=== PATIENT | male | born 1965 | race Caucasian/White ===

== ENCOUNTER 2017-01-30 13:35 | Emergency (ER) | payer MEDICAID, OTHER ==
[2017-01-30 13:49] VITALS: TEMP 98.2
--- NOTE | 2017-01-30 15:03 | C.PDOC ---
History Of Present Illness 51 year old male, whose past medical history includes seizures, presents to the ED via EMS for evaluation after having a tonic clonic seizure episode earlier today. Patient admits he did not take his prescribed Dilantin today. He also reports cough and admits to tobacco use. Patient denies fever, chills, tongue biting, urinary/bowel incontinence. Time Seen by Provider: 01/30/17 14:23 Chief Complaint (Nursing): Seizure History Per: Patient, EMS History/Exam Limitations: no limitations Recent Seizure Activity Began: Unknown Length Of Seizures (Duration): Unknown Precipitating Factor(s): Missed Dose Of Anti-seizure Medication Additional History Per: Patient, Family Past Medical History Reviewed: Historical Data, Nursing Documentation, Vital Signs Vital Signs: Last Vital Signs Temp 98.2 F 01/30/17 19:05 Pulse 97 H 01/30/17 19:05 Resp 17 01/30/17 19:05 BP 161/94 H 01/30/17 19:05 Pulse Ox 97 01/30/17 23:10 - Medical History PMH: Anxiety, Asthma, Depression, HTN, Schizophrenia, Seizures (Epilepsy) Surgical History: No Surg Hx Family History: States: Unknown Family Hx - Social History Hx Tobacco Use: Yes Hx Alcohol Use: No Hx Substance Use: No - Immunization History Hx Tetanus Toxoid Vaccination: Yes Hx Influenza Vaccination: Yes (2016) Hx Pneumococcal Vaccination: No Review Of Systems Constitutional: Negative for: Fever, Chills Respiratory: Positive for: Cough Genitourinary: Negative for: Incontinence Neurological: Positive for: Seizures Physical Exam - Physical Exam Appears: Non-toxic, No Acute Distress Skin: Normal Color, Warm, Dry Head: Atraumatic, Normacephalic Eye(s): bilateral: Normal Inspection Oral Mucosa: Moist Tongue: Normal Appearing, No Bite, No Bleeding Neck: Supple Chest: Symmetrical, No Deformity, No Tenderness Cardiovascular: Rhythm Regular, No Murmur Respiratory: No Rales, No Rhonchi, Wheezing (expiratory, bilaterally ) Gastrointestinal/Abdominal: Soft, No Tenderness, No Guarding, No Rebound Extremity: Normal ROM, Capillary Refill (less than 2 seconds ) Neurological/Psych: Oriented x3, Normal Speech, Normal Cognition Gait: Steady ED Course And Treatment - Laboratory Results Result Diagrams: 01/30/17 15:09 01/30/17 15:09 O2 Sat by Pulse Oximetry: 97 (on RA) Pulse Ox Interpretation: Normal - Other Rad CXR X-Ray: Interpreted by Me, Viewed By Me, Read By Radiologist Interpretation: IMPRESSION: No active disease. Medical Decision Making Medical Decision Making: Initial Impression: * seizure * cough Plan: * bloodwork * CXR * reassess and disposition Progress: Bloodwork and CXR ordered and reviewed. patient received 700 mg of po dilantin patient refused iv medication - dilantin patient has dilantin at home and will discharge home to follow up with pmd in 2 days Disposition Counseled Patient/Family Regarding: Studies Performed, Diagnosis, Need For Followup - Disposition Referrals: Estuardo Ruiz [Staff Provider] - Disposition: HOME/ ROUTINE Disposition Time: 18:56 Condition: STABLE Additional Instructions: follow up with your doctor in 2 days call to make an appointment continue your dilantin return to hospital if symptoms worsens or progress Prescriptions: Sildenafil Citrate [Viagra] 25 mg PO DAILY #8 tablet Instructions: Recurrent Seizures in Adults (ED) Forms: Pad[employer] ([place]orese), Gen Discharge Inst Venezuelan, [employer] (Venezuelan) Print Language: ENGLISH - Clinical Impression Clinical Impression: Seizure - Scribe Statement The provider has reviewed the documentation as recorded by the Scribe (Bri Perez) Provider Attestation: All medical record entries made by the Scribe were at my direction and personally dictated by me. I have reviewed the chart and agree that the record accurately reflects my personal performance of the history, physical exam, medical decision making, and the department course for this patient. I have also personally directed, reviewed, and agree with the discharge instructions and disposition.
[2017-01-30 15:13] LABS: BASO % 0.4 % (0.0-2.0); EOS # 1.1 K/uL (0.0-0.7); EOS % 12.6 % (0.0-4.0); LYMPH # 2.7 K/uL (1.0-4.3); LYMPH % 30.5 % (20.0-40.0); MEAN CELL VOLUME 90.9 fL (80.0-94.0); MEAN CORPUSCULAR HEMOGLOBIN 30.2 pg (27.0-31.0); MEAN CORPUSCULAR HGB CONC 33.3 g/dL (33.0-37.0); MEAN PLATELET VOLUME 10.3 fL (7.2-11.7); NRBC % 0.1 % (0.0-2.0); RED CELL DISTRIBUTION WIDTH 14.5 % (11.5-14.5); WHITE BLOOD COUNT 8.8 K/uL (4.8-10.8)
[2017-01-30 15:22] LABS: CHLORIDE 103 mmol/L (98-107); POTASSIUM 4.3 mmol/L (3.6-5.2); SODIUM 138 mmol/L (132-148)
[2017-01-30 15:24] LABS: GFR AFRICAN-AMERICAN > 60
[2017-01-30 15:25] LABS: ALB/GLOB RATIO 1.1 (1.0-2.1); ALKALINE PHOSPHATASE 104 U/L (38-126); ALT/SGPT 40 U/L (21-72); AST/SGOT 32 U/L (17-59); BILIRUBIN,TOTAL 0.6 mg/dL (0.2-1.3); BLOOD UREA NITROGEN 11 mg/dL (9-20); CALCIUM 9.4 mg/dl (8.6-10.4); CARBON DIOXIDE 24 mmol/L (22-30); GLUCOSE,RANDOM 79 mg/dL (75-110); TOTAL PROTEIN 8.4 g/dL (6.3-8.3)
--- NOTE | 2017-01-30 15:58 | RAD ---
HISTORY: Seizure COMPARISON: 07/27/2014 TECHNIQUE: Chest PA and lateral FINDINGS: LUNGS: No active pulmonary disease. PLEURA: No significant pleural effusion identified. No pneumothorax apparent. CARDIOVASCULAR: Normal. OSSEOUS STRUCTURES: The prior right side plate with screws fixing a prior right clavicular fracture has been removed. . Thoracic spondylosis VISUALIZED UPPER ABDOMEN: Normal. OTHER FINDINGS: None. IMPRESSION: No active disease.
[2017-01-30] MEDS ORDERED: Albuterol-Ipratrop 3 mg / 0.5 (3 ml) UD INH STA (16:43)
[2017-01-30] MEDS ORDERED: Fosphenytoin 1,000 MG in Sodium Chloride 0.9% 50 ML IM STA (16:53)
[2017-01-30] MEDS ORDERED: Albuterol-Ipratrop 3 mg / 0.5 (3 ml) UD ONE (16:57)
[2017-01-30 19:06] VITALS: BP 161/94; PULSE 97; RESP 17
[2017-01-30 20:12] VITALS: O2SAT 97
== END 2017-01-30 19:17 | disposition home or self-care (01) ==
LOC: C.ER 13:35
DX: G40.909 Epilepsy, unspecified, not intractable, without status epilepticus (principal); I10 Essential (primary) hypertension; F17.210 Nicotine dependence, cigarettes, uncomplicated
CPT/HCPCS: 71020; 80053; 80185; 82948; 85025; 96374; 99285; J1165

== ENCOUNTER 2017-03-30 14:44 | Inpatient (IN) | payer MEDICAID, OTHER ==
--- NOTE | 2017-03-30 15:29 | C.PDOC ---
History Of Present Illness 50 year old male whose PMH includes seizures and schizoaffective disorder, presents to the ED for psychiatric evaluation. Mother called EMS because he was holding a knife and thought about cutting himself. Patient admits he has not taken his medications for few days. Additionally reports hearing voices and the voice told him to grab knife. He denies any suicidal thoughts at present time. He also reports feeling confused and there is delay in responses. Patient cannot recall his last seizure. Time Seen by Provider: 03/30/17 14:59 Chief Complaint (Nursing): Psychiatric Evaluation History Per: Family (mother) History/Exam Limitations: no limitations Onset/Duration Of Symptoms: Gradual Current Symptoms Are (Timing): Still Present Severity: None Pain Scale Rating Of: 0 Involuntary Hold By: None Recent travel outside of the [place]: No Additional History Per: Patient Past Medical History Reviewed: Historical Data, Nursing Documentation, Vital Signs Vital Signs: Last Vital Signs Temp 98.5 F 03/30/17 16:48 Pulse 72 03/30/17 16:48 Resp 18 03/30/17 16:48 BP 152/89 H 03/30/17 16:48 Pulse Ox 96 03/30/17 17:35 - Medical History PMH: Anxiety, Asthma, Depression, HTN, Schizophrenia, Seizures (Epilepsy) Family History: States: Unknown Family Hx - Social History Hx Tobacco Use: Yes Hx Alcohol Use: No Hx Substance Use: No - Immunization History Hx Tetanus Toxoid Vaccination: Yes Hx Influenza Vaccination: Yes (2016) Hx Pneumococcal Vaccination: No Review Of Systems Except As Marked, All Systems Reviewed And Found Negative. Constitutional: Negative for: Fever, Chills Cardiovascular: Negative for: Chest Pain, Palpitations Respiratory: Negative for: Cough, Shortness of Breath Neurological: Negative for: Headache, Dizziness Psych: Positive for: Other (hearing voices). Negative for: Suicidal ideation Physical Exam - Physical Exam Appears: Non-toxic, No Acute Distress Skin: Normal Color, Warm, Dry Head: Atraumatic, Normacephalic Eye(s): bilateral: Normal Inspection, EOMI Oral Mucosa: Moist Neck: Normal ROM Chest: Symmetrical Cardiovascular: Rhythm Regular, No Murmur Respiratory: Normal Breath Sounds, No Rales, No Rhonchi, No Wheezing Gastrointestinal/Abdominal: Soft, No Tenderness Extremity: Normal ROM, No Pedal Edema, No Deformity, No Swelling Neurological/Psych: Normal Speech, Normal Motor, Normal Sensation, Slow To Respond With Command Disoriented To: Time ED Course And Treatment - Laboratory Results Result Diagrams: 03/30/17 16:06 03/30/17 16:06 Lab Interpretation: No Acute Changes O2 Sat by Pulse Oximetry: 96 (RA) Pulse Ox Interpretation: Normal Medical Decision Making Medical Decision Making: Impression: schizophrenic hearing voices and confusion Plan: * Labs * Head CT Progress: Labs reviewed and Head CT without any acute findings. Phenytoin level is low. Resume meds Patient is medically cleared and stable for psychiatric admission. 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 As per CW Camille patient is to be admitted under Dr Martinez service for schizophrenia Disposition - Disposition Disposition: HOSPITALIZED Disposition Time: 17:36 Condition: STABLE Forms: [facility] (Greek) - POA Present On Arrival: None - Clinical Impression Clinical Impression: Schizophrenia - PA / FUNDING SPECIALIST / Resident Statement MD/DO has reviewed & agrees with the documentation as recorded. - Scribe Statement The provider has reviewed the documentation as recorded by the Scribe Bill Perez All medical record entries made by the Scribe were at my direction and personally dictated by me. I have reviewed the chart and agree that the record accurately reflects my personal performance of the history, physical exam, medical decision making, and the department course for this patient. I have also personally directed, reviewed, and agree with the discharge instructions and disposition. Decision To Admit - Pt Status Changed To: Hospital Disposition Of: Inpatient - Admit Certification Admit to Inpatient:: After my assessment, the patient will require hospitalization for at least two midnights. This is because of the severity of symptoms shown, intensity of services needed, and/or the medical risk in this patient being treated as an outpatient. - InPatient: Physician Admission Certification: I certify that this patient requires 2 or more midnights of care for the following reason:: Patient to be admitted for schizophrenia under DR Martinez service - . Bed Request Type: Psychiatry Admitting Physician: Luann Martinez Patient Diagnosis: Schizophrenia
--- NOTE | 2017-03-30 15:52 | CT ---
PROCEDURE: CT HEAD WITHOUT CONTRAST. HISTORY: confusion COMPARISON: 11/19/2014 TECHNIQUE: Axial computed tomography images were obtained through the head/brain without intravenous contrast. Radiation dose: Total exam DLP = 1003.45 mGy-cm. This CT exam was performed using one or more of the following dose reduction techniques: Automated exposure control, adjustment of the mA and/or kV according to patient size, and/or use of iterative reconstruction technique. FINDINGS: HEMORRHAGE: No intracranial hemorrhage. BRAIN: No mass effect or edema. No atrophy or chronic microvascular ischemic changes. VENTRICLES: Unremarkable. No hydrocephalus. CALVARIUM: Unremarkable. PARANASAL SINUSES: Unremarkable as visualized. No significant inflammatory changes. MASTOID AIR CELLS: Unremarkable as visualized. No inflammatory changes. OTHER FINDINGS: Old depressed right lamina papyracea fracture. IMPRESSION: No intracranial mass, hemorrhage or evidence of acute infarct.
[2017-03-30 16:12] LABS: BASO # 0.1 K/uL (0.0-0.2); BASO % 0.9 % (0.0-2.0); EOS # 0.6 K/uL (0.0-0.7); EOS % 4.7 % (0.0-4.0); HEMATOCRIT 46.4 % (35.0-51.0); LYMPH # 3.1 K/uL (1.0-4.3); LYMPH % 24.1 % (20.0-40.0); MEAN CELL VOLUME 91.2 fL (80.0-94.0); MEAN CORPUSCULAR HEMOGLOBIN 29.9 pg (27.0-31.0); MEAN CORPUSCULAR HGB CONC 32.8 g/dL (33.0-37.0); MEAN PLATELET VOLUME 10.2 fL (7.2-11.7); MONO # 0.9 K/uL (0.0-0.8); MONO % 6.7 % (0.0-10.0); RED CELL DISTRIBUTION WIDTH 14.7 % (11.5-14.5); WHITE BLOOD COUNT 12.7 K/uL (4.8-10.8)
[2017-03-30 16:28] LABS: RBC URINE < 1 /hpf (0-3); URINE BILIRUBIN NEGATIVE (NEGATIVE); URINE BLOOD NEGATIVE (NEGATIVE); URINE COLOR Straw (YELLOW); URINE GLUCOSE (UA) NORMAL (Normal); URINE KETONE NEGATIVE (NEGATIVE); URINE LEUKOCYTE ESTERASE NEG Leu/uL (Negative); URINE PROTEIN NEGATIVE (NEGATIVE); URINE UROBILINOGEN NORMAL mg/dL (0.2-1.0); WBC URINE 2 /hpf (0-5)
[2017-03-30 16:32] LABS: ALB/GLOB RATIO 1.4 (1.0-2.1); ALCOHOL SERUM < 10 mg/dl (0-10); ALKALINE PHOSPHATASE 118 U/L (38-126); ALT/SGPT 40 U/L (21-72); AST/SGOT 28 U/L (17-59); BILIRUBIN,TOTAL 0.5 mg/dL (0.2-1.3); BLOOD UREA NITROGEN 12 mg/dL (9-20); CALCIUM 9.1 mg/dl (8.6-10.4); CARBON DIOXIDE 23 mmol/L (22-30); CHLORIDE 105 mmol/L (98-107); GFR AFRICAN-AMERICAN > 60; GLUCOSE,RANDOM 120 mg/dL (75-110); POTASSIUM 4.1 mmol/L (3.6-5.2); SODIUM 140 mmol/L (132-148); TOTAL PROTEIN 7.7 g/dL (6.3-8.3)
[2017-03-30] MEDS ORDERED: Magnesium Hydroxide Susp 30 ml UD PO ONE (20:01)
[2017-03-30] MEDS ORDERED: Albuterol HFA 90 mcg/actuation (8 g) INH PRN ×2 (22:00→22:14)
--- NOTE | 2017-03-30 22:46 | PCM.BM ---
<Yohan Santos - Last Filed: 03/30/17 22:45> Treatment Plan Problems - Problems identified on initial assessmt Suicidal Ideation Date Initiated: 03/30/17 Time Initiated: 18:30 Assessment reference: NA Status: Active Auditory Hallucination Date Initiated: 03/30/17 Time Initiated: 18:30 Assessment reference: NA Status: Active Treatment assets and liabiliti Patient Assests: ADL independent, negotiates basic needs Patient Liabilities: medical problems - Milieu Protocol Maintain good personal hygiene: daily Encourage regular showers, daily Remind patient to perform daily oral care Conduct patient checks and document Observation sheet: Q15 minutes Maintain personal safety: every shift Educate patient to report safety concerns to staff, every shift Monitor environment for contraband/sharps Medication safety: Monitor for expected outcome, potential side effects: every shift, Assess barriers to learning: every shift, Assess readiness for medication education: every shift <Alysa Diaz - Last Filed: 04/02/17 11:10> - Diagnosis (1) Schizoaffective disorder Status: Acute Interventions: 04/02/17 11:11 * Assess/adjust medications daily and /or as needed * See patient on an individual basis 7x/week to assess status of hallucinations * Discuss risks, benefits, side effects and alternatives of medications * <Theresa Elliott - Last Filed: 04/05/17 14:29> Family Contact Family involvement: Family/SO is involved Family contact: Patient agrees to contact Family contact name: Christiano Castro Family contacted how many times per week?: 1 - Goals for Treatment Patient goals for treatment: "I want to go home." Discharge/Continuing Care - Education Needs Education Needs: Patient Medication, Patient Coping Skills - Discharge Discharge Criteria: Tolerates medication w/o severe side effects, Reduction of target symptoms Discharge to:: Home, With Family - Treatment Team Participation Discussed with Family/SO: Yes Was Patient/Family/SO present at Treatment Team Meeting: Yes
--- NOTE | 2017-03-31 09:28 | PCM.PSYCH ---
Initial Psychiatric Evaluation - Initial Psychiatric Evaluation Type of Admission: Voluntary Legal Status: Capacity Chief Complaint (in patient's own words): I was feeling suicidal.' History of Present Illness and Precipitating Events: This is a 51 years old HM who was escorted to the ED, by police because of suicidal ideation and suicidal gestures. As per the ED notes, pt stated that his mother called 911 after he was " feeling really sad and started screaming and crying." Pt stated he "doesn't know " why he feels sad, and was "hearing voices" that told him to take the knife from the kitchen drawer and cut his neck, but his mother took the knife away. Pt displayed a large scar on his right collarbone which he stated is a result of cutting himself. When asked to describe his mood, pt stated he feels "confused, and I have double vision and seeing light spots," which began this morning, as per pt. Pt reports a long history of Schizoaffective disorder and history of multiple inpatient psychiatric hospitalizations, including [facility]. He just graduated from the [facility] program and follows up with . Pt reports that he has been non-compliant with his psychiatric medication for a couple of days. He remained Isolated and withdrawn in the unit and appeared malodorous and disheveled. He still os hearing voices telling him to kill himself and VH seeing shadows. He remained paranoid, delusional, depressed and suspicious. He reports feelings of hopelessness and helplessness and reports poor sleep and anxiety. He denies any drinking or any substance abuse. PMH: DM, HTN, Seizures, TBI Current Medications: Active Medications Generic Name Dose Route Start Last Admin Trade Name Freq PRN Reason Stop Dose Admin Albuterol 1 puff 03/30/17 22:14 Ventolin Hfa 90 Mcg/Actuation (8 G) INH RQ4 PRN SOB Clonidine HCl 0.1 mg 03/30/17 18:51 03/30/17 19:03 Catapres PO 0.1 mg Q4H PRN Administration Systolic Blood Pressure >160 Docusate Sodium 100 mg 03/30/17 20:15 03/31/17 09:27 Colace PO 100 mg BID REESE Administration Hydroxyzine HCl 25 mg 03/30/17 20:28 03/30/17 21:24 Atarax PO 25 mg Q6H PRN Administration Anxiety Olanzapine 20 mg 03/30/17 22:30 03/30/17 23:00 Zyprexa PO 20 mg HS REESE Administration Phenytoin Sodium 300 mg 03/31/17 10:00 03/31/17 09:27 Dilantin PO 300 mg BID REESE Administration Pneumococcal Polyvalent Vaccine 0.5 ml 04/02/17 10:00 Pneumovax 23 Vaccine IM 04/02/17 10:01 .ONCE ONE Trazodone HCl 50 mg 03/30/17 22:00 03/30/17 21:24 Desyrel PO 50 mg HS REESE Administration Past Psychiatric History - Past Psychiatric History Previous Treatment History: Inpatient Pertinent Medical Hx (Current Medical&Sleep Prob, Allergies): Allergies Allergy/AdvReac Type Severity Reaction Status Date / Time No Known Allergies Allergy Verified 01/30/17 14:04 Olanzapine [Zyprexa] 30 mg PO DAILY 05/03/16 Albuterol HFA [Ventolin HFA 90 mcg/actuation (8 g)] 2 puff INH PRN PRN 03/30/17 Atorvastatin [Lipitor] 10 mg PO DAILY 03/30/17 Citalopram Hydrobromide [Celexa] 40 mg PO BID 03/30/17 Lisinopril 2.5 mg PO BID 03/30/17 Meloxicam [Mobic] 15 mg PO DAILY 03/30/17 Phenytoin, Extended [Dilantin Kapseals] 350 mg PO BID 03/30/17 Zolpidem [Ambien] 10 mg PO DAILY 03/30/17 hydrOXYzine Pamoate [Vistaril] 50 mg PO DAILY 03/30/17 Review of Systems - Review of Systems All systems: reviewed and no additional remarkable complaints except - Psychiatric Psychiatric: Anxiety, Auditory Hallucinations, Depression, Hopelessness, Irritability Mental Status Examination - Personal Presentation Personal Presentation: Looks stated age - Affect Affect: Constricted, Depressed - Motor Activity Motor Activity: Psychomotor Retardation - Reliability in Providing Information Reliability in Providing Information: Poor, due to alteration in thoughts, Poor , due to altered mood - Speech Speech: Disorganized - Mood Mood: Depressed, Anxious - Formal Thought Process Formal Thought Process: Hallucinations, Delusions, Paranoia, Loosening of associations - Hallucinations/Delusions Hallucinations: Auditory Delusions: Persecution - Obsessions/Compulsions Obsessions: No Compulsions: No - Cognitive Functions Orientation: Person, Place, Situation, Time Sensorium: Alert Attention/Concentration: Attentive Abstract Thinking: [place] Estimate of Intelligence: Below average Judgement: Imparied, as evidence by: Poor judgement, Imparied, as evidence by: Lack of insight into illness - Risk Risk: Suicidal, Diminished functioning DSM 5 DX - DSM 5 DSM 5 Diagnosis: Schizoaffective disorder depressed type - Recommended/Plan of Treatment Treatment Recommendations and Plan of Treatment: Schizoaffective disorder depressed type CBT Psychoeducation Supportive therapy, group therapy, individual therapy Olanzapine 20 mg PO HS Cogentin 1 mg by mouth HS Zoloft 50 mg PO Daily Trazodone 50 mg by mouth daily at bedtime - Smoking Cessation Smoking Cessation Initiated: No
--- NOTE | 2017-04-01 22:23 | PCM.PYCHPN ---
Psychiatric Progress Note - Psychiatric Progress Note Patient seen today, length of contact: 15 minute Patient Chief Complaint: I am feeling better. Can I go home today. Problems Identified/Issues Discussed: Patient seen, chart reviewed, case discussed with the staff. Issues related to illness and treatment were discussed with the patient and staff. Reported compliant with treatment with no adverse effects. Feeling much better and wanted to go home. Aftercare discussed with the patient. Patient was awake, alert and oriented 3. Denied any delusions, auditory or visual hallucinations, suicidal ideations or homicidal ideations at the time of evaluation.. Medical Problems: Seizure disorder Diagnostic Results: Reviewed DSM 5 Symptoms Update: Improvement with treatment Medication Change: No Medical Record Reviewed: Yes Mental Status Examination - Cognitive Function Orientation: Person, Place, Situation, Time Memory: Intact Attention: WNL Concentration: WNL Association: WNL Fund of Knowledge: [facility] Decription of patient's judgement and insights: Fair - Mood Mood: Neutral - Affect Affect: Flat - Speech Speech: Slurred - Formal Thought Process Formal Thought Process: Loosening of associations - Suicidal Ideation Suicidal Ideation: No - Homicidal Ideation Homicidal Ideation: No Goal/Treatment Plan - Goal/Treatment Plan Need for Continued Stay: Remain at risks for inpatient hospitalization, Discharge may exacerbated symptoms, Severe functional impairment Progress Toward Problem(s) and Goals/Treatment Plan: Patient education Supportive therapy Continue treatment as before Patient will go back to [facility] to attend his program. Estimated Date of D/C: 04/06/17 - Smoking Cessation Smoking Cessation Initiated: No
[2017-04-02] MEDS ORDERED: Pneumococcal 23-Valent Vaccine IM ONE (10:00)
[2017-04-02] MEDS ORDERED: Influenza Vaccine 60 mcg/0.5 mL SYR (4YR UP) IM ONE (10:00)
--- NOTE | 2017-04-02 11:10 | PCM.PYCHPN ---
Psychiatric Progress Note - Psychiatric Progress Note Patient seen today, length of contact: 15 minutes Patient Chief Complaint: "I'm feeling very anxious" Problems Identified/Issues Discussed: Patient was seen, chart reviewed, and case discussed with staff. Patient remained disorganized and internally preoccupied. He still reports of hearing voices and still appears paranoid and delusional. He reports depressed and anxious mood and feelings of hopelessness and helplessness. He remained isolated, confined and withdrawn. He is taking medication and denies any side effects. Supportive therapy and psychoeducation were given. Patient is compliant with medications and denies any side effects. Symptoms are improving but need more time to stabilize. Support and psychoeducation given. Medication Change: No Medical Record Reviewed: Yes Mental Status Examination - Cognitive Function Orientation: Person, Place, Situation, Time Memory: Intact Attention: WNL Concentration: Poor Association: Loose Fund of Knowledge: Poor - Mood Mood: Anxious - Affect Affect: Flat - Speech Speech: Slurred - Formal Thought Process Formal Thought Process: Delusions, Paranoia, Loosening of associations - Suicidal Ideation Suicidal Ideation: No - Homicidal Ideation Homicidal Ideation: No Goal/Treatment Plan - Goal/Treatment Plan Need for Continued Stay: Remain at risks for inpatient hospitalization, Discharge may exacerbated symptoms, Severe functional impairment Progress Toward Problem(s) and Goals/Treatment Plan: Schizoaffective disorder depressed type CBT Psychoeducation Supportive therapy, group therapy, individual therapy Olanzapine 20 mg PO HS Cogentin 1 mg by mouth HS Zoloft 25 mg PO Daily Trazodone 50 mg by mouth daily at bedtime H/O Seizures Phenytoin Estimated Date of D/C: 04/06/17 - Smoking Cessation Smoking Cessation Initiated: No
--- NOTE | 2017-04-03 09:59 | PCM.PYCHPN ---
Psychiatric Progress Note - Psychiatric Progress Note Patient seen today, length of contact: 17 minutes Patient Chief Complaint: "I'm better" Problems Identified/Issues Discussed: Patient was seen, chart reviewed, and case discussed with staff. Pt reports some improvement in the feelings of depression and hopelessness. Pt also reports feelings of anxiety. Pt remained disorganized and interanlly preoccupied. but denies auditory and visual hallucinations. He appeared paranoid and delusional. Pt reports that his appetite is good and he was able to eat breakfast this morning. Pt reports that he did sleep well last night but only after a second dose of his medication. Pt still appears disheveled and unkempt. Patient is compliant with medications and denies any side effects. Symptoms are improving but need more time to stabilize. Support and psychoeducation given. Medication Change: No Medical Record Reviewed: Yes Mental Status Examination - Cognitive Function Orientation: Person, Place, Situation, Time Memory: Intact Attention: WNL Concentration: Poor Association: Loose Fund of Knowledge: Poor - Mood Mood: Depressed, Anxious - Affect Affect: Constricted, Depressed - Speech Speech: Appropriate - Formal Thought Process Formal Thought Process: Delusions, Paranoia, Loosening of associations - Suicidal Ideation Suicidal Ideation: No - Homicidal Ideation Homicidal Ideation: No Goal/Treatment Plan - Goal/Treatment Plan Need for Continued Stay: Remain at risks for inpatient hospitalization, Discharge may exacerbated symptoms, Severe functional impairment, Other Progress Toward Problem(s) and Goals/Treatment Plan: Schizoaffective disorder depressed type CBT Psychoeducation Supportive therapy, group therapy, individual therapy Olanzapine 20 mg PO HS Cogentin 1 mg by mouth HS Zoloft 50 mg PO Daily Trazodone 50 mg by mouth daily at bedtime Estimated Date of D/C: 04/06/17 - Smoking Cessation Smoking Cessation Initiated: No
--- NOTE | 2017-04-03 11:31 | CARD ---
APPROVED REPORT EKG Measurement Heart [id number] <Conclusion> Normal sinus rhythm Minimal voltage criteria for LVH, may be normal variant T wave abnormality, consider lateral ischemia Abnormal ECG
--- NOTE | 2017-04-04 10:42 | PCM.PYCHPN ---
Psychiatric Progress Note - Psychiatric Progress Note Patient seen today, length of contact: 15 minutes Patient Chief Complaint: "I'm feeling very anxious" Problems Identified/Issues Discussed: Patient was seen, chart reviewed, and case discussed with staff. Patient remained disorganized and internally preoccupied. He reports improvement in the voices and still appears paranoid and delusional. He reports depressed and anxious mood and reports improvement in the feelings of hopelessness and helplessness. He remained isolated, confined and withdrawn. He is taking medication and denies any side effects. Supportive therapy and psychoeducation were given. Patient is compliant with medications and denies any side effects. Symptoms are improving but need more time to stabilize. Support and psychoeducation given. Medication Change: Yes (Start zoloft) Medical Record Reviewed: Yes Mental Status Examination - Cognitive Function Orientation: Person, Place, Situation, Time Memory: Intact Attention: WNL Concentration: Poor Association: Loose Fund of Knowledge: Poor - Mood Mood: Anxious - Affect Affect: Flat - Speech Speech: Slurred - Formal Thought Process Formal Thought Process: Delusions, Paranoia, Loosening of associations - Suicidal Ideation Suicidal Ideation: No - Homicidal Ideation Homicidal Ideation: No Goal/Treatment Plan - Goal/Treatment Plan Need for Continued Stay: Remain at risks for inpatient hospitalization, Discharge may exacerbated symptoms, Severe functional impairment Progress Toward Problem(s) and Goals/Treatment Plan: Schizoaffective disorder depressed type CBT Psychoeducation Supportive therapy, group therapy, individual therapy Olanzapine 20 mg PO HS Cogentin 1 mg by mouth HS Zoloft 25 mg PO Daily Trazodone 50 mg by mouth daily at bedtime H/O Seizures Phenytoin Estimated Date of D/C: 04/06/17 - Smoking Cessation Smoking Cessation Initiated: No
--- NOTE | 2017-04-05 10:55 | PCM.PYCHPN ---
Psychiatric Progress Note - Psychiatric Progress Note Patient seen today, length of contact: 15 minutes Patient Chief Complaint: "I'm good, I'm ready to go home" Problems Identified/Issues Discussed: Patient was seen, chart reviewed, and case discussed with staff. Patient appears more organized and less internally preoccupied. He denies hearing voices. He reports improvement in the feelings of depression and anxiety and feelings of hopelessness and helplessness. He remained isolated, confined and withdrawn. He is taking medication and denies any side effects. Supportive therapy and psychoeducation were given. Patient is compliant with medications and denies any side effects. Symptoms are improving but need more time to stabilize. Support and psychoeducation given. Medication Change: Yes (increase zoloft) Medical Record Reviewed: Yes Mental Status Examination - Cognitive Function Orientation: Person, Place, Situation, Time Memory: Intact Attention: WNL Concentration: Poor Association: Loose Fund of Knowledge: WNL - Mood Mood: Neutral - Affect Affect: Flat - Speech Speech: Slurred - Formal Thought Process Formal Thought Process: Delusions, Paranoia, Loosening of associations - Suicidal Ideation Suicidal Ideation: No - Homicidal Ideation Homicidal Ideation: No Goal/Treatment Plan - Goal/Treatment Plan Need for Continued Stay: Remain at risks for inpatient hospitalization, Discharge may exacerbated symptoms, Severe functional impairment Progress Toward Problem(s) and Goals/Treatment Plan: Schizoaffective disorder depressed type CBT Psychoeducation Supportive therapy, group therapy, individual therapy Olanzapine 20 mg PO HS Cogentin 1 mg by mouth HS Zoloft 50 mg PO Daily Trazodone 50 mg by mouth daily at bedtime H/O Seizures Phenytoin Estimated Date of D/C: 04/06/17 - Smoking Cessation Smoking Cessation Initiated: No
--- NOTE | 2017-04-06 10:33 | PCM.PYCHPN ---
Psychiatric Progress Note - Psychiatric Progress Note Patient seen today, length of contact: 15 minutes Patient Chief Complaint: "I'm good, I'm ready to go home, God Bless you doctor.' Problems Identified/Issues Discussed: Patient was seen, chart reviewed, and case discussed with staff. As per the staff, he is doing very good. Patient appears organized and kempt. He reports much improvement feelings of depression and feelings of hopelessness and helplessness. He remained calm and cooperative however, he remained isolated. He is taking medication and denies any side effects. Supportive therapy and psychoeducation were given. Patient is compliant with medications and denies any side effects. Symptoms are improving but need more time to stabilize. Support and psychoeducation given. Medication Change: No Medical Record Reviewed: Yes Mental Status Examination - Cognitive Function Orientation: Person, Place, Situation, Time Memory: Intact Attention: WNL Concentration: WNL Association: WNL Fund of Knowledge: Poor - Mood Mood: Neutral - Affect Affect: Constricted - Speech Speech: Appropriate - Formal Thought Process Formal Thought Process: No Impairment - Suicidal Ideation Suicidal Ideation: No - Homicidal Ideation Homicidal Ideation: No Goal/Treatment Plan - Goal/Treatment Plan Need for Continued Stay: Remain at risks for inpatient hospitalization Progress Toward Problem(s) and Goals/Treatment Plan: Schizoaffective disorder depressed type CBT Psychoeducation Supportive therapy, group therapy, individual therapy Olanzapine 20 mg PO HS Cogentin 1 mg by mouth HS Zoloft 50 mg PO Daily Trazodone 50 mg by mouth daily at bedtime H/O Seizures Phenytoin Estimated Date of D/C: 04/06/17 - Smoking Cessation Smoking Cessation Initiated: No
[2017-04-06 11:43] VITALS: RESP 20
--- NOTE | 2017-04-07 15:42 | PCM.PYCHPN ---
Psychiatric Progress Note - Psychiatric Progress Note Patient seen today, length of contact: 15 minutes Patient Chief Complaint: I am feeling better. Can I go home today. Problems Identified/Issues Discussed: Patient seen, chart reviewed, case discussed with the staff. Issues related to illness and treatment were discussed with the patient and staff. Reported compliant with treatment with no adverse effects. Feeling much better and wanted to go home. Aftercare discussed with the patient. Patient was awake, alert and oriented 3. Denied any delusions, auditory or visual hallucinations, suicidal ideations or homicidal ideations at the time of evaluation.. Medical Problems: Seizure disorder Diabetes mellitus Hypertension Traumatic brain injury Diagnostic Results: Reviewed DSM 5 Symptoms Update: Improving with treatment. Medication Change: No Medical Record Reviewed: Yes Mental Status Examination - Cognitive Function Orientation: Person, Place, Situation, Time Memory: Intact Attention: WNL Concentration: WNL Association: WNL Fund of Knowledge: [facility] Decription of patient's judgement and insights: Fair - Mood Mood: Neutral - Affect Affect: Other (Appropriate) - Speech Speech: Appropriate - Formal Thought Process Formal Thought Process: No Impairment - Suicidal Ideation Suicidal Ideation: No - Homicidal Ideation Homicidal Ideation: No Goal/Treatment Plan - Goal/Treatment Plan Need for Continued Stay: Remain at risks for inpatient hospitalization, Discharge may exacerbated symptoms, Severe functional impairment Progress Toward Problem(s) and Goals/Treatment Plan: Patient education Supportive therapy Continue treatment as before Patient will go back to [facility] to attend his program. Estimated Date of D/C: 04/09/17 - Smoking Cessation Smoking Cessation Initiated: No
[2017-04-08 06:14] VITALS: TEMP 97.2
--- NOTE | 2017-04-08 16:51 | PCM.PYCHPN ---
Psychiatric Progress Note - Psychiatric Progress Note Patient seen today, length of contact: 15 minutes Patient Chief Complaint: "I'm thinking more positive" Problems Identified/Issues Discussed: Patient was seen. Chart was reviewed important content noted. Nurse input received. Patient has no new complaints. No events overnight. Patient slept well and is eating well. Patient stated that he is thinking more positive and denies any depressive symptoms. Denies suicidal or homicidal ideations. Patient does not report hallucinations. No delusions elicited. No paranoia elicited. Patient has remained in good clinical and behavioral control. Symptoms are improving, but needs more time to stabilize. Patient is finding medications beneficial and would like to continue with treatment plan. Patient appreciated that treatment team is trying to help. DSM 5 Symptoms Update: Schizoaffective disorder depressed type Medication Change: No Medical Record Reviewed: Yes Mental Status Examination - Cognitive Function Orientation: Person, Place, Situation, Time Memory: Intact Attention: WNL Concentration: WNL Association: WNL Fund of Knowledge: Poor Decription of patient's judgement and insights: fair/fair - Mood Mood: Depressed, Neutral - Affect Affect: Constricted - Speech Speech: Appropriate - Formal Thought Process Formal Thought Process: No Impairment Psychotic Thoughts and Behaviors: denied - Suicidal Ideation Suicidal Ideation: No - Homicidal Ideation Homicidal Ideation: No Goal/Treatment Plan - Goal/Treatment Plan Need for Continued Stay: Remain at risks for inpatient hospitalization, Severe functional impairment Progress Toward Problem(s) and Goals/Treatment Plan: CBT Psychoeducation Supportive therapy, group therapy, individual therapy Olanzapine 20 mg PO HS Cogentin 1 mg by mouth HS Zoloft 50 mg PO Daily Trazodone 50 mg by mouth daily at bedtime H/O Seizures Phenytoin Estimated Date of D/C: 04/10/17 - Smoking Cessation Smoking Cessation Initiated: Yes
[2017-04-09 06:15] VITALS: BP 122/68; PULSE 72; O2SAT 98
--- NOTE | 2017-04-09 10:10 | PCM.PYCHDC ---
Mental Status Examination - Mental Status Examination Orientation: Situation, Time Memory: Intact Mood: Neutral Affect: Constricted Speech: Soft Attention: WNL Concentration: WNL Association: WNL Fund of Knowledge: WNL Formal Thought Process: No Impairment Description of patient's judgement and insight: GOOD, FAIR Psychotic Thoughts and Behaviors: Denies any AVH Suicidal Ideation: No Current Homicidal Ideation?: No Discharge Summary - Discharge Note Reason for Hospitalization: This is a 51 years old HM who was escorted to the ED, by police because of suicidal ideation and suicidal gestures. As per the ED notes, pt stated that his mother called 911 after he was " feeling really sad and started screaming and crying." Pt stated he "doesn't know " why he feels sad, and was "hearing voices" that told him to take the knife from the kitchen drawer and cut his neck, but his mother took the knife away. Pt displayed a large scar on his right collarbone which he stated is a result of cutting himself. When asked to describe his mood, pt stated he feels "confused, and I have double vision and seeing light spots," which began this morning, as per pt. Pt reports a long history of Schizoaffective disorder and history of multiple inpatient psychiatric hospitalizations, including [facility]. He just graduated from the [facility] care program and follows up with . Pt reports that he has been non-compliant with his psychiatric medication for a couple of days. He remained Isolated and withdrawn in the unit and appeared malodorous and disheveled. He still os hearing voices telling him to kill himself and VH seeing shadows. He remained paranoid, delusional, depressed and suspicious. He reports feelings of hopelessness and helplessness and reports poor sleep and anxiety. He denies any drinking or any substance abuse. Consultations:: List each consultation separately and include: 1. Reason for request. 2. Findings. 3. Follow-up Summary of Hospital Course include:: 1. Description of specific treatment plan utilized for patients during their course of treatmen. 2. Summarize the time- course for resolution of acute symptoms and/or regressed behaviors. 3. Describe issues identified and worked on during hospitalization. 4. Describe medication utilized. 5. Describe medical problems identified and treated. 6. Reassessment of suicide risk Summary of Hospital Course: During the course of his stay, patient (pt) started progressively improving and he no longer remained irritable, depressed, and paranoid. His mood and anxiety symptoms were improved and he started attending groups and meetings and started socializing. Patient denied any feelings of hopelessness, helplessness, and worthlessness, denied any problem with the sleep or appetite, denied suicidal ideation or homicidal ideation. Pt denied any auditory or visual hallucinations. Some changes were made in his current medications and patient was discharged on following medications. He tolerated these medications very well and denied any side effects. Pt is to return to ID[facility] program at [facility]. - Diagnosis (1) Schizoaffective disorder Status: Acute - Final Diagnosis (DSM 5) Condition upon Discharge: STABLE DSM 5: Schizoaffective disorder depressed type Disposition: HOME/ ROUTINE Follow-up Treatment Plan: Education: Pt was educated and counseled about the risks and benefits of taking and not taking medications. Pt was educated and counseled about the risks of drinking and abusing drugs. Pt was educated and counseled to go to the ER or call 911 if pt develop suicidal ideation or homicidal ideation, worsening of symptoms or severe side effects of the meds. Prescriptions/Medication Reconciliation: Albuterol HFA [Ventolin HFA 90 mcg/actuation (8 g)] 1 puff INH RQ4 PRN #1 inhaler PRN Reason: SOB Atorvastatin [Lipitor] 10 mg PO DAILY #30 tab Benztropine [Cogentin] 1 mg PO HS #30 tab Lisinopril 2.5 mg PO BID #60 tablet OLANZapine [Zyprexa] 20 mg PO HS #30 tab Phenytoin, Extended [Dilantin] 300 mg PO BID #60 cer Sertraline [Zoloft] 50 mg PO DAILY #30 tab traZODone [Desyrel] 100 mg PO HS PRN #30 tab PRN Reason: Insomnia - Smoking Cessation Smoking Cessation Medication prescribed: No - Antipsychotic Medications Pt discharged on 2 or more routine antipsychotic medications: No
== END 2017-04-09 11:00 | disposition home or self-care (01) | DRG 430 ==
LOC: C.ER 14:44 → C.5E 17:31
PROVIDERS: ADMIT Psychiatry & Neurology Psychiatry; ATTEND Psychiatry & Neurology Psychiatry
PROC: GZ3ZZZZ Medication Management (ICD-10-PCS; principal; 2017-03-30)
PROC: GZHZZZZ Group Psychotherapy (ICD-10-PCS; 2017-03-30)
PROC: GZ56ZZZ Individual Psychotherapy, Supportive (ICD-10-PCS; 2017-03-30)
DX: F25.1 Schizoaffective disorder, depressive type (principal); R45.851 Suicidal ideations; E11.9 Type 2 diabetes mellitus without complications; H53.2 Diplopia; F41.9 Anxiety disorder, unspecified; G40.909 Epilepsy, unspecified, not intractable, without status epilepticus; I10 Essential (primary) hypertension; J45.909 Unspecified asthma, uncomplicated; Z91.19 Patient's noncompliance with other medical treatment and regimen; Z91.5 Personal history of self-harm; Z79.899 Other long term (current) drug therapy

== ENCOUNTER 2017-07-20 09:12 | Day surgery (SDC) | payer OTHER ==
[2017-07-20 10:01] VITALS: BMI 26.8
[2017-07-20 10:36] VITALS: TEMP 97
[2017-07-20] MEDS ORDERED: Propofol 10 mg/ml Inj (20 ML) ONE (10:58)
[2017-07-20] MEDS ORDERED: Midazolam 2 MG/2 ML VIAL ONE (11:30)
[2017-07-20 12:13] VITALS: BP 142/88; O2SAT 100
[2017-07-20 12:47] VITALS: PULSE 80; RESP 18
== END 2017-07-20 12:45 | disposition home or self-care (01) ==
LOC: C.ENDO 09:12
PROVIDERS: ATTEND Internal Medicine
DX: Z12.11 Encounter for screening for malignant neoplasm of colon (principal); Z80.0 Family history of malignant neoplasm of digestive organs; K64.9 Unspecified hemorrhoids; J45.909 Unspecified asthma, uncomplicated; E11.9 Type 2 diabetes mellitus without complications; I10 Essential (primary) hypertension; F41.9 Anxiety disorder, unspecified; G40.909 Epilepsy, unspecified, not intractable, without status epilepticus; E66.9 Obesity, unspecified; Z68.32 Body mass index [BMI] 32.0-32.9, adult; F17.210 Nicotine dependence, cigarettes, uncomplicated; F32.9 Major depressive disorder, single episode, unspecified; K63.5 Polyp of colon; D12.8 Benign neoplasm of rectum; K64.8 Other hemorrhoids; K57.30 Diverticulosis of large intestine without perforation or abscess without bleeding
CPT/HCPCS: 45380; 88305; J2250; J2704

== ENCOUNTER 2018-02-01 09:48 | Emergency (ER) | payer MEDICAID, OTHER ==
[2018-02-01 09:49] VITALS: BMI 26.6
[2018-02-01 09:56] VITALS: TEMP 98.3
[2018-02-01 10:24] LABS: HEMOGLOBIN 14.6 g/dL (12.0-18.0); MEAN CELL VOLUME 90.8 fL (80.0-94.0); MEAN CORPUSCULAR HEMOGLOBIN 29.9 pg (27.0-31.0); MEAN PLATELET VOLUME 9.8 fL (7.2-11.7); RBC 4.88 Mil/uL (4.40-5.90); RED CELL DISTRIBUTION WIDTH 14.9 % (11.5-14.5)
[2018-02-01 10:58] VITALS: BP 140/72; PULSE 75; RESP 16; O2SAT 98
[2018-02-01 11:09] LABS: ALB/GLOB RATIO 1.5 (1.0-2.1); ALBUMIN 4.4 g/dL (3.5-5.0); ALT/SGPT 32 U/L (21-72); AST/SGOT 25 U/L (17-59); BLOOD UREA NITROGEN 17 mg/dL (9-20); CALCIUM 9.3 mg/dl (8.6-10.4); GFR NON-AFRICAN AMERICAN > 60
--- NOTE | 2018-02-01 11:40 | C.PDOC ---
History Of Present Illness 52-year-old male, whose PMHx includes seizures, is brought to the ED via ambulance after patient had a seizure while in his [facility] earlier today. As per [facility] staff, patient had two ten-minute seizures which resolved without medication. Patient appears slightly drowsy and is able to answer questions. He complains of blurry vision and "seeing flashes of light." Patient notes he takes Dilantin, but ran out of the medication three days ago. Patient denies tongue lacerations or urinary/bowel incontinence. Time Seen by Provider: 02/01/18 10:08 Chief Complaint (Nursing): Seizure History Per: Patient History/Exam Limitations: no limitations Recent Seizure Activity Began: Just Before Arrival Length Of Seizures (Duration): Minutes (10) Precipitating Factor(s): Missed Dose Of Anti-seizure Medication Additional History Per: Patient Past Medical History Reviewed: Historical Data, Nursing Documentation, Vital Signs Vital Signs: Last Vital Signs Temp 98.3 F 02/01/18 09:55 Pulse 75 02/01/18 10:58 Resp 16 02/01/18 10:58 BP 140/72 02/01/18 10:58 Pulse Ox 98 02/01/18 10:58 - Medical History PMH: Anxiety, Asthma, Depression, HTN, Hypercholesterolemia, Schizophrenia, Seizures (Epilepsy) Denies: Diabetes, Hepatitis, HIV, Chronic Kidney Disease, Sexually Transmit chelo Disease Surgical History: No Surg Hx - [facility] Procedures GROUP PSYCHOTHERAPY (03/30/17) INDIVIDUAL PSYCHOTHERAPY, SUPPORTIVE (03/30/17) MEDICATION MANAGEMENT (03/30/17) Family History: States: Unknown Family Hx - Social History Hx Tobacco Use: Yes Hx Alcohol Use: No Hx Substance Use: No - Immunization History Hx Tetanus Toxoid Vaccination: Yes Hx Influenza Vaccination: Yes (2016) Hx Pneumococcal Vaccination: No Review Of Systems Eyes: Positive for: Other (blurry vision ) Genitourinary: Negative for: Incontinence Neurological: Positive for: Seizures Physical Exam - Physical Exam Appears: Non-toxic, No Acute Distress Skin: Normal Color, Warm, Dry Head: Atraumatic, Normacephalic Eye(s): bilateral: Normal Inspection Oral Mucosa: Moist Tongue: Normal Appearing, No Laceration Neck: Supple Chest: Symmetrical, No Deformity, No Tenderness Cardiovascular: Rhythm Regular, No Murmur Respiratory: Normal Breath Sounds, No Rales, No Rhonchi, No Wheezing Extremity: Normal ROM, Capillary Refill (less than 2 seconds ) Neurological/Psych: Other (drowsy, but arousable to voice and follows commands. Answers questions and opens eyes ) ED Course And Treatment - Laboratory Results Result Diagrams: 02/01/18 10:00 02/01/18 10:49 O2 Sat by Pulse Oximetry: 98 (on RA) Pulse Ox Interpretation: Normal Medical Decision Making Medical Decision Making: Progress: Bloodwork ordered and reviewed. Dilantin IVP given- 1g loading dose Patient gradually returned to baseline. On re-eval he states that he feels much better. Requesting refill on his Dilantin, which was provided. Advised compliance with medications. Disposition - Disposition Disposition: HOME/ ROUTINE Disposition Time: 14:01 Condition: FAIR Additional Instructions: JESUS GONZALEZ, thank you for letting us take care of you today. Your provider was Courtney Villa MD and you were treated for SEIZURE. The emergency medical care you received today was directed at your acute symptoms. If you were prescribed any medication, please fill it and take as directed. It may take several days for your symptoms to resolve. Return to the Emergency Department if your symptoms worsen, do not improve, or if you have any other problems. Please contact your doctor or call one of the physicians/clinics you have been referred to that are listed on the Patient Visit Information form that is included in your discharge packet. Bring any paperwork you were given at discharge with you along with any medications you are taking to your follow up visit. Our treatment cannot replace ongoing medical care by a primary care provider outside of the emergency department. Thank you for allowing the [facility] team to be part of your care today. If you had an X-Ray or CT scan: A Radiologist will review the ED reading if any change in treatment is needed we will contact you. If you had a blood, urine, or wound culture: It will take several days for the results, if any change in treatment is needed we will contact you. If you had an STI test: It will take 48 hours for the results. Please call after 1 week if you have not heard back. Prescriptions: RX: Phenytoin, Extended [Dilantin] 100 mg PO BID #50 cer Instructions: Seizures, Adult (DC) Forms: Experiment (Wolof) - Clinical Impression Clinical Impression: Seizure disorder - Scribe Statement The provider has reviewed the documentation as recorded by the Scribe (Bri Perez) Provider Attestation: All medical record entries made by the Scribe were at my direction and personally dictated by me. I have reviewed the chart and agree that the record accurately reflects my personal performance of the history, physical exam, medical decision making, and the department course for this patient. I have also personally directed, reviewed, and agree with the discharge instructions and disposition.
--- NOTE | 2018-02-04 20:50 | CARD ---
APPROVED REPORT Date of service: 02/01/2018 EKG Measurement Heart [id number] <Conclusion> Normal sinus rhythm Nonspecific T wave abnormality Abnormal ECG
== END 2018-02-01 14:12 | disposition home or self-care (01) ==
LOC: C.ER 09:48
DX: G40.909 Epilepsy, unspecified, not intractable, without status epilepticus (principal); E78.00 Pure hypercholesterolemia, unspecified; F20.9 Schizophrenia, unspecified; I10 Essential (primary) hypertension; Z72.0 Tobacco use
CPT/HCPCS: 80053; 80185; 85027; 96365; 99285; J1165

== ENCOUNTER 2018-06-03 09:39 | Inpatient (IN) | payer MEDICAID, OTHER ==
[2018-06-03 09:39] VITALS: BMI 26.6
--- NOTE | 2018-06-03 10:10 | C.PDOC ---
History Of Present Illness 52 year old male presents to ED complaining that he "was hearing voices yesterday but now they went away and I feel better now. " Patient states that he is compliant with his medication and doesn't want to be admitted anymore. Patien t also states that he experiences occasional double vision. He states that he is on Dilantin, but doesn't know when his levels were last checked. Patient has a history of seizure disorder, schizoaffective disorder, and multiple inpatient psychiatric evaluations, including [facility]. Patient denies recent seizure. <Iva Hitchcock - Last Filed: 06/03/18 19:10> History Per: Patient History/Exam Limitations: no limitations Onset/Duration Of Symptoms: Days (1) Current Symptoms Are (Timing): Gone Associated Symptoms: Other (Hearing voices) <Iva Hitchcock - Last Filed: 06/03/18 19:10> <Shireen Castro - Last Filed: 06/04/18 05:53> <Jessie Cai - Last Filed: 06/04/18 10:18> <Nataliia Lafleur - Last Filed: 06/11/18 22:24> Time Seen by Provider: 06/03/18 10:09 Chief Complaint (Nursing): Psychiatric Evaluation Past Medical History Reviewed: Historical Data, Nursing Documentation, Vital Signs - Medical History PMH: Anxiety, Asthma, Depression, HTN, Hypercholesterolemia, Schizophrenia, Seizures (Epilepsy) Denies: Diabetes, Hepatitis, HIV, Chronic Kidney Disease, Sexually Transmitted Disease Surgical History: No Surg Hx - [facility] Procedures GROUP PSYCHOTHERAPY (03/30/17) INDIVIDUAL PSYCHOTHERAPY, SUPPORTIVE (03/30/17) MEDICATION MANAGEMENT (03/30/17) Family History: States: Unknown Family Hx - Social History Hx Tobacco Use: Yes Hx Alcohol Use: No Hx Substance Use: No - Immunization History Hx Tetanus Toxoid Vaccination: Yes Hx Influenza Vaccination: Yes (2015) Hx Pneumococcal Vaccination: No <Iva Hitchcock - Last Filed: 06/03/18 19:10> Vital Signs: Last Vital Signs Temp 98.9 F 06/04/18 05:33 Pulse 74 06/04/18 05:33 Resp 16 06/04/18 05:33 BP 153/81 H 06/04/18 05:33 Pulse Ox 96 06/04/18 05:33 - [facility] Procedures GROUP PSYCHOTHERAPY (03/30/17) INDIVIDUAL PSYCHOTHERAPY, SUPPORTIVE (03/30/17) MEDICATION MANAGEMENT (03/30/17) <Shireen Castro - Last Filed: 06/04/18 05:53> Vital Signs: Last Vital Signs Temp 98.8 F 06/04/18 08:58 Pulse 79 06/04/18 08:58 Resp 18 06/04/18 08:58 BP 149/65 06/04/18 08:58 Pulse Ox 95 06/04/18 08:58 - [facility] Procedures GROUP PSYCHOTHERAPY (03/30/17) INDIVIDUAL PSYCHOTHERAPY, SUPPORTIVE (03/30/17) MEDICATION MANAGEMENT (03/30/17) <Jessie Cai - Last Filed: 06/04/18 10:18> Vital Signs: Last Vital Signs Temp 98.4 F 06/03/18 14:30 Pulse 73 06/03/18 14:30 Resp 20 06/03/18 14:30 BP 152/69 H 06/03/18 14:30 Pulse Ox 95 06/03/18 14:30 - [facility] Procedures GROUP PSYCHOTHERAPY (03/30/17) INDIVIDUAL PSYCHOTHERAPY, SUPPORTIVE (03/30/17) MEDICATION MANAGEMENT (03/30/17) <Nataliia Lafleur - Last Filed: 06/11/18 22:24> Review Of Systems Constitutional: Negative for: Fever, Chills, Weakness Eyes: Positive for: Vision Change (occasional double vision) Cardiovascular: Negative for: Chest Pain, Palpitations Respiratory: Negative for: Cough, Shortness of Breath Gastrointestinal: Negative for: Nausea, Vomiting Neurological: Negative for: Weakness, Numbness, Dizziness <Iva Hitchcock - Last Filed: 06/03/18 19:10> Physical Exam - Physical Exam Appears: Well, Non-toxic, No Acute Distress, Other (appears comfortable) Skin: Normal Color, Warm, Dry Head: Atraumatic, Normacephalic Eye(s): bilateral: EOMI, Other (anicteric) Neck: Normal ROM, Supple Chest: Symmetrical, No Deformity Respiratory: No Accessory Muscle Use Extremity: Capillary Refill (<2 seconds) Pulses: Left Radial: Normal, Right Radial: Normal Neurological/Psych: Other (calm,cooperative, no SI/HI, no active psychosis) <Iva Hitchcock - Last Filed: 06/03/18 19:10> ED Course And Treatment - Laboratory Results Result Diagrams: 06/03/18 14:36 06/03/18 13:05 <Iva Hitchcock - Last Filed: 06/03/18 19:10> - Laboratory Results Result Diagrams: 06/03/18 14:36 06/03/18 13:05 Lab Results: Total Bilirubin 0.5 mg/dL (0.2-1.3) 06/03/18 13:05 AST 37 U/L (17-59) 06/03/18 13:05 ALT 25 U/L (21-72) 06/03/18 13:05 Alkaline Phosphatase 88 U/L (38-126) 06/03/18 13:05 Total Protein 8.1 g/dL (6.3-8.3) 06/03/18 13:05 Albumin 4.9 g/dL (3.5-5.0) 06/03/18 13:05 Globulin 3.2 gm/dL (2.2-3.9) 06/03/18 13:05 Albumin/Globulin Ratio 1.5 (1.0-2.1) 06/03/18 13:05 Urine Color Yellow (YELLOW) 06/03/18 13:05 Urine Clarity Clear (Clear) 06/03/18 13:05 Urine pH 6.0 (5.0-8.0) 06/03/18 13:05 Ur Specific [place] 1.003 (1.003-1.030) 06/03/18 13:05 Urine Protein Negative mg/dL (NEGATIVE) 06/03/18 13:05 Urine Glucose (UA) 3+ mg/dL (Normal) H 06/03/18 13:05 Urine Ketones Negative mg/dL (NEGATIVE) 06/03/18 13:05 Urine Blood Negative (NEGATIVE) 06/03/18 13:05 Urine Nitrate Negative (NEGATIVE) 06/03/18 13:05 Urine Bilirubin Negative (NEGATIVE) 06/03/18 13:05 Urine Urobilinogen Normal mg/dL (0.2-1.0) 06/03/18 13:05 Ur Leukocyte Esterase Neg [place]/uL (Negative) 06/03/18 13:05 Urine WBC (Auto) < 1 /hpf (0-5) 06/03/18 13:05 Urine RBC (Auto) < 1 /hpf (0-3) 06/03/18 13:05 <Shireen Castro - Last Filed: 06/04/18 05:53> - Laboratory Results Result Diagrams: 06/03/18 14:36 06/03/18 13:05 Lab Results: Total Bilirubin 0.5 mg/dL (0.2-1.3) 06/03/18 13:05 AST 37 U/L (17-59) 06/03/18 13:05 ALT 25 U/L (21-72) 06/03/18 13:05 Alkaline Phosphatase 88 U/L (38-126) 06/03/18 13:05 Total Protein 8.1 g/dL (6.3-8.3) 06/03/18 13:05 Albumin 4.9 g/dL (3.5-5.0) 06/03/18 13:05 Globulin 3.2 gm/dL (2.2-3.9) 06/03/18 13:05 Albumin/Globulin Ratio 1.5 (1.0-2.1) 06/03/18 13:05 Urine Color Yellow (YELLOW) 06/03/18 13:05 Urine Clarity Clear (Clear) 06/03/18 13:05 Urine pH 6.0 (5.0-8.0) 06/03/18 13:05 Ur Specific [place] 1.003 (1.003-1.030) 06/03/18 13:05 Urine Protein Negative mg/dL (NEGATIVE) 06/03/18 13:05 Urine Glucose (UA) 3+ mg/dL (Normal) H 06/03/18 13:05 Urine Ketones Negative mg/dL (NEGATIVE) 06/03/18 13:05 Urine Blood Negative (NEGATIVE) 06/03/18 13:05 Urine Nitrate Negative (NEGATIVE) 06/03/18 13:05 Urine Bilirubin Negative (NEGATIVE) 06/03/18 13:05 Urine Urobilinogen Normal mg/dL (0.2-1.0) 06/03/18 13:05 Ur Leukocyte Esterase Neg [place]/uL (Negative) 06/03/18 13:05 Urine WBC (Auto) < 1 /hpf (0-5) 06/03/18 13:05 Urine RBC (Auto) < 1 /hpf (0-3) 06/03/18 13:05 <Jessie Cai - Last Filed: 06/04/18 10:18> - Laboratory Results Result Diagrams: 06/03/18 14:36 06/03/18 13:05 Lab Results: Total Bilirubin 0.5 mg/dL (0.2-1.3) 06/03/18 13:05 AST 37 U/L (17-59) 06/03/18 13:05 ALT 25 U/L (21-72) 06/03/18 13:05 Alkaline Phosphatase 88 U/L (38-126) 06/03/18 13:05 Total Protein 8.1 g/dL (6.3-8.3) 06/03/18 13:05 Albumin 4.9 g/dL (3.5-5.0) 06/03/18 13:05 Globulin 3.2 gm/dL (2.2-3.9) 06/03/18 13:05 Albumin/Globulin Ratio 1.5 (1.0-2.1) 06/03/18 13:05 Urine Color Yellow (YELLOW) 06/03/18 13:05 Urine Clarity Clear (Clear) 06/03/18 13:05 Urine pH 6.0 (5.0-8.0) 06/03/18 13:05 Ur Specific [place] 1.003 (1.003-1.030) 06/03/18 13:05 Urine Protein Negative mg/dL (NEGATIVE) 06/03/18 13:05 Urine Glucose (UA) 3+ mg/dL (Normal) H 06/03/18 13:05 Urine Ketones Negative mg/dL (NEGATIVE) 06/03/18 13:05 Urine Blood Negative (NEGATIVE) 06/03/18 13:05 Urine Nitrate Negative (NEGATIVE) 06/03/18 13:05 Urine Bilirubin Negative (NEGATIVE) 06/03/18 13:05 Urine Urobilinogen Normal mg/dL (0.2-1.0) 06/03/18 13:05 Ur Leukocyte Esterase Neg [place]/uL (Negative) 06/03/18 13:05 Urine WBC (Auto) < 1 /hpf (0-5) 06/03/18 13:05 Urine RBC (Auto) < 1 /hpf (0-3) 06/03/18 13:05 ECG: Interpreted By Me, Viewed By Me (NSR 69bpm, normal axis, T wave inversions II, III, aVF, V4-V5, no acute ST changes - T wave changes seen in prior EKG 02/01/18) ECG Interpretation: No Acute Changes, Abnormal - Radiology CXR: Interpreted by Me, Viewed By Me CXR Interpretation: Yes: No Acute Disease. No: Infiltrates Progress Note: Patient medically cleared. Has been seen by crisis counselor Ferny, is not willing to be admitted psychiatrically here. Patient came to ED after hearing voices telling him to kill himself. Plan as per crisis is to have patient screened by [facility]. 7:00p- Patient signed out to Dr. Castro pending [facility] screening. <Nataliia Lafleur - Last Filed: 06/11/18 22:24> Progress - Re-Evaluation Re-evaluation Note: 06/03/18 10:40 SP CRISIS EVAL: REFERRED FROM [facility]. 06/03/18 11:56 pending crisis dispo 06/03/18 12:37 PER CRISIS, ADMISSION REQUIRED. LABS ORDERED. - Data Reviewed Data Reviewed: Lab, Old records <Iva Hitchcock - Last Filed: 06/03/18 19:10> Medical Decision Making Medical Decision Making: Signed out to me by Dr. Castro as pending psych eval. Accepted by psych <Jessie Cai - Last Filed: 06/04/18 10:18> Disposition - Disposition Disposition Time: 13:00 <Iva Hitchcock - Last Filed: 06/03/18 19:10> Counseled Patient/Family Regarding: Studies Performed, Diagnosis <Shireen Castro - Last Filed: 06/04/18 05:53> - Disposition Disposition Time: 10:19 <Jessie Cai - Last Filed: 06/04/18 10:18> - Disposition Disposition Time: 19:00 <Nataliia Lafleur - Last Filed: 06/11/18 22:24> - Disposition Condition: STABLE - Clinical Impression Clinical Impression: Schizophrenia - Scribe Statement The provider has reviewed the documentation as recorded by the Scribe (Tabitha Batista) All medical record entries made by the Scribe were at my direction and personally dictated by me. I have reviewed the chart and agree that the record accurately reflects my personal performance of the history, physical exam, medical decision making, and the department course for this patient. I have also personally directed, reviewed, and agree with the discharge instructions and disposition. <Iva Hitchcock - Last Filed: 06/03/18 19:10> Physician Patient Turnover Patient Signed Over To: Nataliia Lafleur Handoff Comments: FU LABS, DISPO <Iva Hitchcock - Last Filed: 06/03/18 19:10> Patient Signed Over To: Jessie Cai Handoff Comments: pending face to face eval by dr alfaro <Shireen Castro - Last Filed: 06/04/18 05:53>
[2018-06-03 13:26] LABS: URINE BILIRUBIN NEGATIVE (NEGATIVE); URINE BLOOD NEGATIVE (NEGATIVE); URINE GLUCOSE (UA) 3+ mg/dL (Normal); URINE LEUKOCYTE ESTERASE NEG Leu/uL (Negative); URINE PROTEIN NEGATIVE (NEGATIVE); URINE UROBILINOGEN NORMAL mg/dL (0.2-1.0)
[2018-06-03 13:27] LABS: URINE COLOR YELLOW (YELLOW)
[2018-06-03 13:28] LABS: URINE CLARITY Clear (Clear)
[2018-06-03 13:31] LABS: ALB/GLOB RATIO 1.5 (1.0-2.1); ALBUMIN 4.9 g/dL (3.5-5.0); BLOOD UREA NITROGEN 14 mg/dL (9-20); CALCIUM 9.6 mg/dl (8.6-10.4); GFR NON-AFRICAN AMERICAN > 60
[2018-06-03 13:32] LABS: ALT/SGPT 25 U/L (21-72); AST/SGOT 37 U/L (17-59)
[2018-06-03 13:39] LABS: BARBITURATES, UR NEGATIVE (NEGATIVE); BENZODIAZEPINES, UR NEGATIVE (NEGATIVE); OPIATES, UR NEGATIVE (NEGATIVE); PHENCYCLIDINE, UR NEGATIVE (NEGATIVE)
[2018-06-03] MEDS ORDERED: Phenytoin 100 mg/4 ml Oral Susp UD PO STA (13:41)
[2018-06-03 14:40] LABS: BASO # 0.1 K/uL (0.0-0.2); BASO % 0.6 % (0.0-2.0); EOS # 1.1 K/uL (0.0-0.7); EOS % 9.2 % (0.0-4.0); HEMOGLOBIN 15.2 g/dL (12.0-18.0); LYMPH # 3.7 K/uL (1.0-4.3); LYMPH % 31.1 % (20.0-40.0); MEAN CORPUSCULAR HEMOGLOBIN 30.7 pg (27.0-31.0); MEAN PLATELET VOLUME 10.1 fL (7.2-11.7); MONO % 8.6 % (0.0-10.0); NEUT # 6.1 K/uL (1.8-7.0); NEUT % 50.5 % (50.0-75.0); NRBC % 0.2 % (0.0-2.0); RBC 4.96 Mil/uL (4.40-5.90); RED CELL DISTRIBUTION WIDTH 14.2 % (11.5-14.5); WHITE BLOOD COUNT 12.1 K/uL (4.8-10.8)
[2018-06-03 14:46] LABS: MEAN CELL VOLUME 92.8 fL (80.0-94.0)
--- NOTE | 2018-06-04 07:51 | RAD ---
Date of service: 06/03/2018 PROCEDURE: CHEST RADIOGRAPH, 1 VIEW HISTORY: MED CLEARANCE COMPARISON: 01/30/2017 FINDINGS: LUNGS: Clear. PLEURA: No pneumothorax or pleural fluid seen. CARDIOVASCULAR: No aortic atherosclerotic calcification present. Normal. OSSEOUS STRUCTURES: Thoracic spondylosis. Bilateral shoulder arthrosis VISUALIZED UPPER ABDOMEN: Normal. OTHER FINDINGS: This exam over each inferolateral lung base are prominent linear costocartilaginous junctions IMPRESSION: No active disease.No interval pathology noted.
[2018-06-04] MEDS ORDERED: Phenytoin 100 mg/4 ml Oral Susp UD PO STA (09:13)
--- NOTE | 2018-06-04 10:27 | PCM.PSYCH ---
Initial Psychiatric Evaluation - Initial Psychiatric Evaluation Type of Admission: Voluntary Legal Status: Capacity Chief Complaint (in patient's own words): I was hearing voices to kill myself.' History of Present Illness and Precipitating Events: Pt is a 52 year old male, who was brought in by EMS, from '[address] [place] [address]' [facility] program, due to depressed mood, and auditory hallucinations, telling pt to kill himself. Patient remained a poor historian. He was superficially cooperative but guarded about the details. He appeared somewhat disorganized and internally preoccupied. Patient reports history of psychiatric hospitalizations. He reports history of follow-[place] with [place], [place] [facility] As per the patient he is currently attending outpatient [place] [facility] and he is compliant with the treatment recommendations. He reports that yesterday he started hearing voices, auditory hallucinations command type telling him to grab a knife and kill himself. Pt also reports of visual hallucinations, seeing "light" and "double vision". He informed his psychiatrist, and he referred him to the [facility] for further stabilization. Patient remained delusional and paranoid throughout the history. He reports of auditory hallucinations and paranoia. He also reports of depressed mood, at times feelings of hopelessness and helplessness, poor sleep and poor appetite. He reports at times irritability but denies any racing thoughts. He denies any drinking or any substance abuse. He also reports past history of multiple suicidal ideations without any attempts. Past medical history: Seizures, HTN and high cholesterol. Past Psychiatric History - Past Psychiatric History Previous Treatment History: Inpatient Pertinent Medical Hx (Current Medical&Sleep Prob, Allergies): Allergies Allergy/AdvReac Type Severity Reaction Status Date / Time No Known Allergies Allergy Verified 02/01/18 10:02 Phenytoin, Extended [Dilantin] 100 mg PO BID #50 cer 02/01/18 Clonazepam [Klonopin] 0.5 mg PO TID 06/03/18 Olanzapine [Zyprexa] 20 mg PO BID 06/03/18 Review of Systems - Review of Systems All systems: reviewed and no additional remarkable complaints except - Psychiatric Psychiatric: Anxiety, Auditory Hallucinations, Irritability, Mood Swings, Paranoia, Suicidal Ideation Mental Status Examination - Personal Presentation Personal Presentation: Looks stated age - Affect Affect: Constricted, Depressed - Motor Activity Motor Activity: Psychomotor Agitation - Reliability in Providing Information Reliability in Providing Information: Poor, due to alteration in thoughts - Speech Speech: Disorganized - Mood Mood: Anxious - Formal Thought Process Formal Thought Process: Hallucinations, Delusions, Paranoia, Loosening of associations - Hallucinations/Delusions Hallucinations: Visual, Auditory Delusions: Persecution - Obsessions/Compulsions Obsessions: No Compulsions: No - Cognitive Functions Orientation: Person, Place, Situation, Time Sensorium: Alert Attention/Concentration: Attentive Abstract Thinking: [place] Estimate of Intelligence: Below average Judgement: Imparied, as evidence by: Poor judgement, Imparied, as evidence by: Lack of insight into illness - Risk Risk: Suicidal, Withdrawal, Diminished functioning - Limitations Limitations: Living alone DSM 5 DX - DSM 5 DSM 5 Diagnosis: Schizophrenia paranoid type continues Rule out schizoaffective disorder bipolar type - Recommended/Plan of Treatment Treatment Recommendations and Plan of Treatment: Schizophrenia paranoid type continues Rule out schizoaffective disorder bipolar type CBT Psychoeducation Supportive therapy and group therapy Olanzapine for psychosis Klonopin for anxiety Trazodone for insomnia Hydroxyzine for anxiety Neurontin for augmentation Celexa for depression - Smoking Cessation Smoking Cessation Initiated: No
--- NOTE | 2018-06-04 12:19 | PCM.BM ---
<CrSamia Elisabeth - Last Filed: 06/04/18 12:17> Treatment Plan Problems - Problems identified on initial assessmt Medication non-adherence Date Initiated: 06/04/18 Time Initiated: 12:18 Assessment reference: NA Status: Active Command/Auditory hallucinations Date Initiated: 06/04/18 Time Initiated: 12:18 Assessment reference: NA Status: Active Treatment assets and liabiliti Patient Assests: cooperative, ADL independent, physically healthy, good support system, negotiates basic needs, good past tx response, cognitively intact Patient Liabilities: medical problems, other (auditory hallucinations) - Milieu Protocol Maintain good personal hygiene: daily Encourage regular showers, daily Remind patient to perform daily oral care, daily Assist patient to perform ADL's Maintain personal safety: every shift Educate patient to report safety concerns to staff, every shift Monitor environment for contraband/sharps Medication safety: Monitor for expected outcome, potential side effects: every shift, Assess barriers to learning: every shift, Assess readiness for medication education: every shift <Alysa Diaz - Last Filed: 06/05/18 10:44> - Diagnosis (1) Schizophrenia Status: Acute Interventions: 06/05/18 10:44 * Assess/adjust medications daily and /or as needed * See patient on an individual basis 7x/week to assess status of hallucinations * Discuss risks, benefits, side effects and alternatives of medications * <Theresa Elliott - Last Filed: 06/05/18 11:39> Family Contact Family involvement: Family/SO is involved - Goals for Treatment Patient goals for treatment: "I need medication." Discharge/Continuing Care - Education Needs Education Needs: Patient Medication, Patient Coping Skills - Discharge Discharge Criteria: Tolerates medication w/o severe side effects, Reduction of target symptoms Discharge to:: Home, With Family - Treatment Team Participation Discussed with Family/SO: No Was Patient/Family/SO present at Treatment Team Meeting: Yes
[2018-06-04] MEDS ORDERED: Magnesium Hydroxide Susp 30 ml UD PO PRN (16:06)
[2018-06-04] MEDS: Docusate-Senna 50 mg-8.6 mg Tab PO SCH (16:31)
[2018-06-05] MEDS: Docusate-Senna 50 mg-8.6 mg Tab PO SCH (10:04)
--- NOTE | 2018-06-05 10:44 | PCM.PYCHPN ---
Psychiatric Progress Note - Psychiatric Progress Note Patient seen today, length of contact: 15 min Patient Chief Complaint: I was hearing voices to kill myself.' Problems Identified/Issues Discussed: Patient was seen and evaluated, chart reviewed and discussed the staff. Patient remained disorganized and internally preoccupied. Appears paranoid and delusional. He reports irritability and agitation and reports that he wants to leave. However he is taking medication but denies any side effects. Supportive therapy was given Medication Change: Yes Medical Record Reviewed: Yes Mental Status Examination - Cognitive Function Orientation: Person, Place, Situation, Time Memory: Intact Attention: WNL Concentration: Poor Association: Loose Fund of Knowledge: Poor - Mood Mood: Anxious - Affect Affect: Constricted, Depressed - Speech Speech: Soft - Formal Thought Process Formal Thought Process: Hallucinations, Delusions, Paranoia, Loosening of associations - Suicidal Ideation Suicidal Ideation: No - Homicidal Ideation Homicidal Ideation: No Goal/Treatment Plan - Goal/Treatment Plan Need for Continued Stay: Remain at risks for inpatient hospitalization Progress Toward Problem(s) and Goals/Treatment Plan: Schizophrenia paranoid type continues Rule out schizoaffective disorder bipolar type CBT Psychoeducation Supportive therapy and group therapy Olanzapine for psychosis Klonopin for anxiety Trazodone for insomnia Hydroxyzine for anxiety Neurontin for augmentation Celexa for depression - Smoking Cessation Smoking Cessation Initiated: No
[2018-06-06 06:44] VITALS: RESP 20
[2018-06-06] MEDS: Docusate-Senna 50 mg-8.6 mg Tab PO SCH (10:00)
--- NOTE | 2018-06-06 22:59 | PCM.PYCHPN ---
Psychiatric Progress Note - Psychiatric Progress Note Patient seen today, length of contact: 15 min Patient Chief Complaint: I m feeling little better.' Problems Identified/Issues Discussed: Patient was seen and evaluated, chart reviewed and discussed the staff. Pt still appears appears paranoid and delusional. He reports irritability and agitation and reports that he wants to leave. Patient appears more organized and less internally preoccupied than before. However he is taking medication but denies any side effects. Supportive therapy was given Medication Change: Yes Medical Record Reviewed: Yes Mental Status Examination - Cognitive Function Orientation: Person, Place, Situation, Time Memory: Intact Attention: WNL Concentration: Poor Association: Loose Fund of Knowledge: Poor - Mood Mood: Anxious - Affect Affect: Constricted, Depressed - Speech Speech: Soft - Formal Thought Process Formal Thought Process: Hallucinations, Delusions, Paranoia, Loosening of associations - Suicidal Ideation Suicidal Ideation: No - Homicidal Ideation Homicidal Ideation: No Goal/Treatment Plan - Goal/Treatment Plan Need for Continued Stay: Remain at risks for inpatient hospitalization Progress Toward Problem(s) and Goals/Treatment Plan: Schizophrenia paranoid type continues Rule out schizoaffective disorder bipolar type CBT Psychoeducation Supportive therapy and group therapy Olanzapine for psychosis Klonopin for anxiety Trazodone for insomnia Hydroxyzine for anxiety Neurontin for augmentation Celexa for depression
[2018-06-07] MEDS: Docusate-Senna 50 mg-8.6 mg Tab PO SCH (09:49)
[2018-06-07] MEDS ORDERED: Pneumococcal 23-Valent Vaccine IM ONE (10:00)
[2018-06-08] MEDS: Docusate-Senna 50 mg-8.6 mg Tab PO SCH (09:47)
[2018-06-09 06:43] VITALS: BP 134/80; PULSE 83; TEMP 98.4; O2SAT 93
[2018-06-09] MEDS: Docusate-Senna 50 mg-8.6 mg Tab PO SCH (09:29)
--- NOTE | 2018-06-09 09:30 | PCM.PYCHDC ---
Mental Status Examination - Mental Status Examination Orientation: Person, Place, Situation Memory: Intact Mood: Neutral Affect: Constricted Speech: Soft Attention: WNL Concentration: WNL Association: WNL Fund of Knowledge: WNL Formal Thought Process: No Impairment Description of patient's judgement and insight: good, fair Psychotic Thoughts and Behaviors: denies any AVH Suicidal Ideation: No Current Homicidal Ideation?: No Discharge Summary - Discharge Note Reason for Hospitalization: Pt is a 52 year old male, who was brought in by EMS, from '[address] [place] [address]' [facility] program, due to depressed mood, and auditory hallucinations, telling pt to kill himself. Patient remained a poor historian. He was superficially cooperative but guarded about the details. He appeared somewhat disorganized and internally preoccupied. Patient reports history of psychiatric hospitalizations. He reports history of follow-up with psychiatrist, Dr. Socorro Caputo at [facility]. As per the patient he is currently attending outpatient treatment at [facility] and he is compliant with the treatment recommendations. He reports that yesterday he started hearing voices, auditory hallucinations command type telling him to grab a knife and kill himself. Pt also reports of visual hallucinations, seeing "light" and "double vision". He informed his psychiatrist, and he referred him to the [facility] for further stabilization. Patient remained delusional and paranoid throughout the history. He reports of auditory hallucinations and paranoia. He also reports of depressed mood, at times feelings of hopelessness and helplessness, poor sleep and poor appetite. He reports at times irritability but denies any racing thoughts. He denies any drinking or any substance abuse. He also reports past history of multiple suicidal ideations without any attempts. Past medical history: Seizures, HTN and high cholesterol. Consultations:: List each consultation separately and include: 1. Reason for request. 2. Findings. 3. Follow-up Summary of Hospital Course include:: 1. Description of specific treatment plan utilized for patients during their course of treatmen. 2. Summarize the time- course for resolution of acute symptoms and/or regressed behaviors. 3. Describe issues identified and worked on during hospitalization. 4. Describe medication utilized. 5. Describe medical problems identified and treated. 6. Reassessment of suicide risk Summary of Hospital Course: Pt is a 52 year old male, who was brought in by EMS, from '[address] [place] [address]' Medical Daycare program, due to depressed mood, and auditory hallucinati ons, telling pt to kill himself. Patient remained a poor historian. He was superficially cooperative but guarded about the details. He appeared somewhat disorganized and internally preoccupied. Patient reports history of psychiatric hospitalizations. He reports history of follow-up with psychiatrist, Dr. Socorro Caputo at [facility]. As per the patient he is currently attending outpatient treatment at [facility] and he is compliant with the treatment recommendations. He reports that yesterday he started hearing voices, auditory hallucinations command type telling him to grab a knife and kill himself. Pt also reports of visual hallucinations, seeing "light" and "double vision". He informed his psychiatrist, and he referred him to the [facility] for further stabilization. Patient remained delusional and paranoid throughout the history. He reports of auditory hallucinations and paranoia. He also reports of depressed mood, at times feelings of hopelessness and helplessness, poor sleep and poor appetite. He reports at times irritability but denies any racing thoughts. He denies any drinking or any substance abuse. He also reports past history of multiple suicidal ideations without any attempts. Past medical history: Seizures, HTN and high cholesterol. - Diagnosis (1) Schizophrenia Current Visit: Yes Status: Acute - Final Diagnosis (DSM 5) Condition upon Discharge: FAIR DSM 5: Schizophrenia paranoid type continues Rule out schizoaffective disorder bipolar type Disposition: HOME/ ROUTINE Follow-up Treatment Plan: Schizophrenia paranoid type continues Rule out schizoaffective disorder bipolar type CBT Psychoeducation Supportive therapy and group therapy Olanzapine for psychosis Klonopin for anxiety Trazodone for insomnia Hydroxyzine for anxiety Neurontin for augmentation Celexa for depression Prescriptions/Medication Reconciliation: Gabapentin [Neurontin] 300 mg PO TID #90 cap OLANZapine [Zyprexa] 10 mg PO HS #30 tab Olanzapine [Zyprexa] 20 mg PO HS #30 tablet Phenytoin, Extended [Dilantin] 100 mg PO TID #90 cer traZODone [Desyrel] 100 mg PO HS #30 tab Ziprasidone [Geodon Cap] 40 mg PO BID #60 cap - Smoking Cessation Smoking Cessation Medication prescribed: No
--- NOTE | 2018-06-12 00:09 | CARD ---
APPROVED REPORT Date of service: 06/03/2018 EKG Measurement Heart [id number] <Conclusion> Normal sinus rhythm Minimal voltage criteria for LVH, may be normal variant T wave abnormality, consider lateral ischemia Abnormal ECG
== END 2018-06-09 12:15 | disposition home or self-care (01) | DRG 430 ==
LOC: C.ER 09:39 → C.5E 06-04 10:16
PROVIDERS: ADMIT Psychiatry & Neurology Psychiatry; ATTEND Psychiatry & Neurology Psychiatry
DX: F20.0 Paranoid schizophrenia (principal); G40.909 Epilepsy, unspecified, not intractable, without status epilepticus; G47.00 Insomnia, unspecified; H53.2 Diplopia; I10 Essential (primary) hypertension; J45.909 Unspecified asthma, uncomplicated; Z87.891 Personal history of nicotine dependence; E78.00 Pure hypercholesterolemia, unspecified

== ENCOUNTER 2018-08-14 11:06 | Emergency (ER) | payer MEDICAID ==
[2018-08-14 11:06] VITALS: BMI 26.6
[2018-08-14 13:07] LABS: URINE BILIRUBIN NEGATIVE (NEGATIVE); URINE BLOOD NEGATIVE (NEGATIVE); URINE CLARITY Clear (Clear); URINE COLOR Yellow (YELLOW); URINE GLUCOSE (UA) 3+ mg/dL (Normal); URINE LEUKOCYTE ESTERASE NEG Leu/uL (Negative); URINE PROTEIN NEGATIVE (NEGATIVE); URINE UROBILINOGEN NORMAL mg/dL (0.2-1.0)
[2018-08-14 13:23] LABS: BASO # 0.1 K/uL (0.0-0.2); BASO % 1.5 % (0.0-2.0); EOS # 1.1 K/uL (0.0-0.7); EOS % 11.1 % (0.0-4.0); HEMOGLOBIN 13.9 g/dL (12.0-18.0); LYMPH # 2.5 K/uL (1.0-4.3); LYMPH % 26.1 % (20.0-40.0); MEAN CORPUSCULAR HEMOGLOBIN 30.5 pg (27.0-31.0); MEAN CORPUSCULAR HGB CONC 33.5 g/dL (33.0-37.0); MEAN PLATELET VOLUME 10.3 fL (7.2-11.7); MONO # 0.5 K/uL (0.0-0.8); MONO % 5.4 % (0.0-10.0); NEUT # 5.3 K/uL (1.8-7.0); NEUT % 55.9 % (50.0-75.0); NRBC % 0.1 % (0.0-2.0); RBC 4.57 Mil/uL (4.40-5.90); WHITE BLOOD COUNT 9.5 K/uL (4.8-10.8)
--- NOTE | 2018-08-14 13:37 | C.PDOC ---
History Of Present Illness 53 year old male with PMHx of seizures on Dilantin presents to the ED BIBA status post seizure. 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 Sta ahsan he does not know how long the seizure was. States he is compliant with seizure medications but he missed this morning's dose because he forgot his medications at home. Time Seen by Provider: 08/14/18 11:16 Chief Complaint (Nursing): Seizure History Per: Patient History/Exam Limitations: no limitations Recent Seizure Activity Began: Just Before Arrival Number Of Seizures: One Length Of Seizures (Duration): Unknown Quality Of Seizure: Generalized Past Medical History Reviewed: Historical Data, Nursing Documentation, Vital Signs Vital Signs: Last Vital Signs Temp 98.0 F 08/14/18 11:08 Pulse 96 H 08/14/18 11:08 Resp 20 08/14/18 11:08 BP 152/73 H 08/14/18 11:08 Pulse Ox 97 08/14/18 11:08 - Medical History PMH: Anxiety, Asthma, Depression, HTN, Hypercholesterolemia, Schizophrenia, Seizures (Epilepsy) Denies: Diabetes, Hepatitis, HIV, Chronic Kidney Disease, Sexually Transmitted Disease Other Surgeries: Hx of surgeries - [facility] Procedures GROUP PSYCHOTHERAPY (03/30/17) INDIVIDUAL PSYCHOTHERAPY, SUPPORTIVE (03/30/17) MEDICATION MANAGEMENT (03/30/17) Family History: States: No Known Family Hx - Social History Hx Tobacco Use: Yes Hx Alcohol Use: No Hx Substance Use: No - Immunization History Hx Tetanus Toxoid Vaccination: No Hx Influenza Vaccination: No Hx Pneumococcal Vaccination: No Review Of Systems Constitutional: Negative for: Fever, Chills Gastrointestinal: Negative for: Nausea, Vomiting, Diarrhea Genitourinary: Negative for: Incontinence Neurological: Positive for: Seizures. Negative for: Headache, Dizziness Physical Exam - Physical Exam Appears: No Acute Distress, Other (drowsy ) Skin: Warm, Dry, No Rash Head: Normacephalic Eye(s): bilateral: Normal Inspection, PERRL, EOMI Nose: Normal Oral Mucosa: Moist Neck: Supple Chest: Symmetrical Cardiovascular: Rhythm Regular Respiratory: Normal Breath Sounds, No Rales, No Rhonchi, No Wheezing Gastrointestinal/Abdominal: Soft, No Tenderness Neurological/Psych: Oriented x3, Normal Speech, Normal Motor, Normal Sensation, Other (following commands, answering all questions) Gait: Steady ED Course And Treatment - Laboratory Results Result Diagrams: 08/14/18 13:18 08/14/18 13:18 Lab Results: Urine Color Yellow (YELLOW) 08/14/18 12:56 Urine Clarity Clear (Clear) 08/14/18 12:56 Urine pH 5.0 (5.0-8.0) 08/14/18 12:56 Ur Specific [place] 1.025 (1.003-1.030) 08/14/18 12:56 Urine Protein Negative mg/dL (NEGATIVE) 08/14/18 12:56 Urine Glucose (UA) 3+ mg/dL (Normal) H 08/14/18 12:56 Urine Ketones Trace mg/dL (NEGATIVE) 08/14/18 12:56 Urine Blood Negative (NEGATIVE) 08/14/18 12:56 Urine Nitrate Negative (NEGATIVE) 08/14/18 12:56 Urine Bilirubin Negative (NEGATIVE) 08/14/18 12:56 Urine Urobilinogen Normal mg/dL (0.2-1.0) 08/14/18 12:56 Ur Leukocyte Esterase Neg Laverne/uL (Negative) 08/14/18 12:56 Urine WBC (Auto) 1 /hpf (0-5) 08/14/18 12:56 ECG: Interpreted By Nj ECG Rhythm: Sinus Rhythm Interpretation Of ECG: normal axis, normal intervals, TWI inferolateral leads, no ST elevation Rate From EC O2 Sat by Pulse Oximetry: 97 (RA) Pulse Ox Interpretation: Normal Medical Decision Making Medical Decision Making: Plan - EKG - Bloodwork - UA Patient remained AAOx3 throughout ED course, constantly asking to go home. Dilantin level subtherapeutic. Home dose 100mg PO given. Hyperglycemia noted, patient states that he does not think he has diabetes. 1L NS bolus given with improvement of glucose to 296. Continues to request discharge. Patient advised to follow up with his PMD. Return to the ED for any new or worsening symptoms. Remain complaint with antiepileptics. Disposition - Disposition Disposition: HOME/ ROUTINE Disposition Time: 16:20 Condition: STABLE Additional Instructions: JEUSS GONZALEZ, thank you for letting us take care of you today. Your provider was Courtney Villa MD and you were treated for SEIZURE. The emergency medical care you received today was directed at your acute symptoms. If you were prescribed any medication, please fill it and take as directed. It may take several days for your symptoms to resolve. Return to the Emergency Department if your symptoms worsen, do not improve, or if you have any other problems. Please contact your doctor or call one of the physicians/clinics you have been referred to that are listed on the Patient Visit Information form that is included in your discharge packet. Bring any paperwork you were given at discharge with you along with any medications you are taking to your follow up visit. Our treatment cannot replace ongoing medical care by a primary care provider outside of the emergency department. Thank you for allowing the [facility] team to be part of your care today. If you had an X-Ray or CT scan: A Radiologist will review the ED reading if any change in treatment is needed we will contact you. If you had a blood, urine, or wound culture: It will take several days for the results, if any change in treatment is needed we will contact you. If you had an STI test: It will take 48 hours for the results. Please call after 1 week if you have not heard back. Instructions: Seizures, Adult (DC) Forms: Keep Your [facility] (Thai) - Clinical Impression Clinical Impression: Seizure disorder - Scribe Statement The provider has reviewed the documentation as recorded by the Scribe Shahida Hightower All medical record entries made by the Scribe were at my direction and personally dictated by me. I have reviewed the chart and agree that the record accurately reflects my personal performance of the history, physical exam, medical decision making, and the department course for this patient. I have also personally directed, reviewed, and agree with the discharge instructions and disposition.
[2018-08-14 14:04] LABS: ALB/GLOB RATIO 1.5 (1.0-2.1); ALBUMIN 4.3 g/dL (3.5-5.0); ALT/SGPT 28 U/L (21-72); AST/SGOT 26 U/L (17-59); BLOOD UREA NITROGEN 15 mg/dL (9-20); CALCIUM 9.4 mg/dl (8.6-10.4); GFR NON-AFRICAN AMERICAN > 60
[2018-08-14 14:09] LABS: VENOUS BLOOD GAS BASE EXCESS -3.8 mmol/L (0.0-2.0); VENOUS BLOOD GAS PCO2 39 mmHg (40-60); VENOUS BLOOD GAS PO2 33 mm/Hg (30-55); VENOUS BLOOD PH 7.35 (7.32-7.43)
[2018-08-14 14:43] VITALS: BP 159/73; PULSE 85; RESP 18; TEMP 97.8
[2018-08-14] MEDS ORDERED: Sodium Chloride 0.9% 1,000 ML IV ONE (15:08)
[2018-08-14] MEDS ORDERED: Sodium Chloride 0.9% 1,000 ML ONE (15:15)
[2018-08-14 16:28] VITALS: O2SAT 97
--- NOTE | 2018-08-15 19:47 | CARD ---
APPROVED REPORT Date of service: 08/14/2018 EKG Measurement Heart [id number] <Conclusion> Normal sinus rhythm Possible Left atrial enlargement T wave abnormality, consider inferolateral ischemia Abnormal ECG
== END 2018-08-14 16:44 | disposition home or self-care (01) ==
LOC: C.ER 11:06
DX: G40.909 Epilepsy, unspecified, not intractable, without status epilepticus (principal); R73.9 Hyperglycemia, unspecified
CPT/HCPCS: 80053; 80185; 81001; 82009; 82803; 82948; 83735; 84100; 85025; 93005; 96360; 99285; J7030

== ENCOUNTER 2018-09-02 10:45 | Emergency (ER) | payer MEDICAID ==
[2018-09-02 10:45] VITALS: BMI 26.6
[2018-09-02 11:33] LABS: BASO # 0.1 K/uL (0.0-0.2); BASO % 0.9 % (0.0-2.0); EOS # 0.7 K/uL (0.0-0.7); EOS % 8.1 % (0.0-4.0); HEMOGLOBIN 14.1 g/dL (12.0-18.0); LYMPH # 2.1 K/uL (1.0-4.3); LYMPH % 25.4 % (20.0-40.0); MEAN CELL VOLUME 91.2 fL (80.0-94.0); MEAN CORPUSCULAR HEMOGLOBIN 30.4 pg (27.0-31.0); MEAN CORPUSCULAR HGB CONC 33.4 g/dL (33.0-37.0); MEAN PLATELET VOLUME 10.3 fL (7.2-11.7); MONO # 0.6 K/uL (0.0-0.8); MONO % 7.3 % (0.0-10.0); NEUT # 4.7 K/uL (1.8-7.0); NEUT % 58.3 % (50.0-75.0); NRBC % 0.2 % (0.0-2.0); RBC 4.64 Mil/uL (4.40-5.90); RED CELL DISTRIBUTION WIDTH 14.6 % (11.5-14.5); WHITE BLOOD COUNT 8.1 K/uL (4.8-10.8)
--- NOTE | 2018-09-02 12:33 | C.PDOC ---
History Of Present Illness 53 year old male brought to ED by ambulance for evaluation after having [address] [place]. Patient has a history of seizure disorder. He takes Dilantin QID, but has ran out for the last 3 days. Patient denies tongue bite, loss of bowel/bladder control, headache, dizziness, and SOB. Time Seen by Provider: 09/02/18 10:48 Chief Complaint (Nursing): Seizure History Per: Patient History/Exam Limitations: no limitations Recent Seizure Activity Began: Hours Ago: Number Of Seizures: Multiple (2) Past Medical History Reviewed: Historical Data, Nursing Documentation, Vital Signs Vital Signs: Last Vital Signs Temp 98.3 F 09/02/18 10:52 Pulse 97 H 09/02/18 11:40 Resp 14 09/02/18 11:40 BP 127/81 09/02/18 11:40 Pulse Ox 99 09/02/18 11:40 Primary Care Provider: Estuardo Ruiz - Medical History PMH: Anxiety, Asthma, Depression, HTN, Hypercholesterolemia, Schizophrenia, Seizures (Epilepsy) Denies: Diabetes, Hepatitis, HIV, Chronic Kidney Disease, Sexually Transmitted Disease Surgical History: No Surg Hx - [facility] Procedures GROUP PSYCHOTHERAPY (03/30/17) INDIVIDUAL PSYCHOTHERAPY, SUPPORTIVE (03/30/17) MEDICATION MANAGEMENT (03/30/17) Family History: States: Unknown Family Hx - Social History Hx Tobacco Use: Yes Hx Alcohol Use: No Hx Substance Use: No - Immunization History Hx Tetanus Toxoid Vaccination: Yes Hx Influenza Vaccination: No Hx Pneumococcal Vaccination: No Review Of Systems Constitutional: Negative for: Weakness Eyes: Negative for: Vision Change ENT: Negative for: Other (tongue bite) Respiratory: Negative for: Shortness of Breath Genitourinary: Negative for: Incontinence Neurological: Negative for: Weakness, Numbness, Headache, Dizziness Physical Exam - Physical Exam Appears: Well, Non-toxic, No Acute Distress Skin: Normal Color, Warm, Dry Head: Atraumatic, Normacephalic Eye(s): bilateral: Normal Inspection, PERRL, EOMI Tongue: No Bite, No Laceration Neck: Normal ROM, Supple Chest: Symmetrical, No Deformity Cardiovascular: Rhythm Regular, No Murmur Respiratory: No Accessory Muscle Use, No Rales, No Rhonchi, No Wheezing Gastrointestinal/Abdominal: Soft, No Tenderness Extremity: Capillary Refill (<2 seconds) Extremity: Bilateral: Atraumatic, Normal Color And Temperature, Normal ROM Pulses: Left Radial: Normal, Right Radial: Normal Neurological/Psych: Oriented x3, Normal Speech, Normal Cognition, Normal Motor, Normal Sensation Gait: Steady ED Course And Treatment - Laboratory Results Result Diagrams: 09/02/18 11:26 09/02/18 12:15 O2 Sat by Pulse Oximetry: 99 (in RA) Pulse Ox Interpretation: Normal Progress Note: CMP and CBC ordered for patient. Patient given Dilantin. Disposition Counseled Patient/Family Regarding: Studies Performed, Diagnosis, Need For Followup, Rx Given - Disposition Referrals: Estuardo Ruiz [Staff Provider] - Disposition: HOME/ ROUTINE Disposition Time: 13:30 Condition: STABLE Additional Instructions: FOLLOW UP WITH YOUR DOCTOR IN 1-2 DAYS USE MEDICATION DIRECTED RETURN TO EMERGENCY ROOM IF YOUR SYMPTOMS BECOME WORSE SEGUIR CON WOLFE MDICO EN 1-2 BURLESON UTILICE MEDICAMENTOS RASHEL SE DIRIGE VUELVA A LA SHANNON DE EMERGENCIA SI MARIO SNTOMAS SE HACEN PEOR Prescriptions: Phenytoin, Extended [Dilantin Kapseals] 100 mg PO QID #120 cer Instructions: Seizures, Adult (DC) Forms: [employer] ([place]er) Print Language: CHINESE - Clinical Impression Clinical Impression: Seizure disorder - Scribe Statement The provider has reviewed the documentation as recorded by the Scribe (Tabitha Batista) All medical record entries made by the Scribe were at my direction and personally dictated by me. I have reviewed the chart and agree that the record accurately reflects my personal performance of the history, physical exam, medical decision making, and the department course for this patient. I have also personally directed, reviewed, and agree with the discharge instructions and disposition.
[2018-09-02 12:42] LABS: ALB/GLOB RATIO 1.5 (1.0-2.1); ALBUMIN 4.6 g/dL (3.5-5.0); ALT/SGPT 43 U/L (21-72); AST/SGOT 37 U/L (17-59); BLOOD UREA NITROGEN 12 mg/dL (9-20); CALCIUM 9.6 mg/dl (8.6-10.4); GFR NON-AFRICAN AMERICAN > 60
[2018-09-02] MEDS ORDERED: (Novolin R) Insulin Human Regular 100 units/ml vial IVP ONE (13:11)
[2018-09-02] MEDS ORDERED: (Novolin R) Insulin Human Regular 100 units/ml vial ONE (13:51)
[2018-09-02 15:22] VITALS: BP 129/72; PULSE 84; RESP 17; TEMP 98.2; O2SAT 98
== END 2018-09-02 15:22 | disposition home or self-care (01) ==
LOC: C.ER 10:45
DX: G40.909 Epilepsy, unspecified, not intractable, without status epilepticus (principal); F20.9 Schizophrenia, unspecified; E78.00 Pure hypercholesterolemia, unspecified; I10 Essential (primary) hypertension; Z72.0 Tobacco use
CPT/HCPCS: 80053; 82948; 85025; 96374; 96375; 99285; J1165

== ENCOUNTER 2018-09-17 12:41 | Emergency (ER) | payer MEDICAID ==
[2018-09-17 12:41] VITALS: BMI 26.6
[2018-09-17 12:54] VITALS: TEMP 98.6
--- NOTE | 2018-09-17 13:04 | C.PDOC ---
History Of Present Illness 53 yr old male w/ hx of seizures, intermittent non-compliance w/ dilantin, malingering p/w seizure like activity at welfare office today. Pt notes that he was at the welfare office when he had a seizure. He notes feeling a pressure on the top of his head double vision in line with his aura followed by his seizure. He notes that he did not bite his tongue however or pee himself. He notes hitting his head but denies any head pain, neck pain, chest pain, abdominal pain or hip pain. He denies any infectious symptoms: no fever, chills or night sweats. No rash or GI or issues. No cough or nasal congestion. No neck stiffness. Notes normal vision at this time. He notes that he has been non- compliant with his dilantin because he ran out of his medications. He denies any fall or trauma. No other complaints. Time Seen by Provider: 09/17/18 13:04 Chief Complaint (Nursing): Seizure Past Medical History Vital Signs: Last Vital Signs Temp 98.6 F 09/17/18 12:53 Pulse 93 H 09/17/18 12:53 Resp 18 09/17/18 12:53 BP 127/79 09/17/18 12:53 Pulse Ox 92 L 09/17/18 12:53 Primary Care Provider: Estuardo Ruiz - Medical History PMH: Anxiety, Asthma, Depression, HTN, Hypercholesterolemia, Schizophrenia, Seizures (Epilepsy) Denies: Diabetes, Hepatitis, HIV, Chronic Kidney Disease, Sexually Transmitted Disease - [facility] Procedures GROUP PSYCHOTHERAPY (03/30/17) INDIVIDUAL PSYCHOTHERAPY, SUPPORTIVE (03/30/17) MEDICATION MANAGEMENT (03/30/17) Family History: States: Unknown Family Hx - Social History Hx Tobacco Use: Yes Hx Alcohol Use: No Hx Substance Use: No - Immunization History Hx Tetanus Toxoid Vaccination: Yes Hx Influenza Vaccination: No Hx Pneumococcal Vaccination: No Review Of Systems Constitutional: Negative for: Fever, Chills, Sweats, Weakness, Malaise, Weight loss Eyes: Negative for: Pain, Conjunctivae Inflammation ENT: Negative for: Ear Pain, Ear Discharge, Nose Pain, Nose Discharge, Nose Congestion, Mouth Pain Cardiovascular: Negative for: Chest Pain, Palpitations, Paroxysmal Noc. Dyspnea, Edema Respiratory: Negative for: Cough, Shortness of Breath, SOB with Excertion, Pleuritic Pain Gastrointestinal: Negative for: Nausea, Vomiting, Abdominal Pain, Diarrhea, Constipation, Melena, Hematochezia, Hematemesis Genitourinary: Negative for: Dysuria, Frequency, Incontinence, Hematuria, Penile Discharge, Scrotal Pain Musculoskeletal: Negative for: Neck Pain, Shoulder Pain, Arm Pain, Back Pain, Hand Pain Skin: Negative for: Rash, Lesions Neurological: Positive for: Seizures. Negative for: Weakness, Numbness, Incoordination, Altered Mental Status, Headache Psych: Negative for: Anxiety, Depression, Psychosis, Suicidal ideation Physical Exam - Physical Exam Appears: Well, Non-toxic, No Acute Distress Skin: Normal Color, Warm, Dry Head: Atraumatic, Normacephalic Eye(s): bilateral: Normal Inspection, PERRL, EOMI, Other (20/20 vision b/l, no double vision) Ear(s): Bilateral: Normal Nose: Normal Tongue: Normal Appearing Lips: Normal Appearing Gingiva: Normal Appearing Throat: Normal, No Erythema, No Exudate Neck: Normal, Normal ROM, Supple, Other (no meningeal signs) Cardiovascular: Rhythm Regular, No Friction Rub, No Murmur, No JVD Respiratory: Normal Breath Sounds, No Rales, No Rhonchi, No Stridor Gastrointestinal/Abdominal: Normal Exam, Soft, No Tenderness, No Organomegaly, No Mass, No Distention, No Guarding Back: Normal Inspection, No CVA Tenderness, No Vertebral Tenderness Extremity: Normal ROM, No Tenderness, No Pedal Edema, No Calf Tenderness Extremity: Bilateral: Atraumatic, Hips Non-Tender, Normal ROM Neurological/Psych: Oriented x3, Normal Speech, Normal Cognition, Normal Cranial Nerves, No Cerebellar Signs, Normal Motor Gait: Steady Other Neurological Findings: No Facial Palsy, No Tongue Deviation Extremity: Right: No Drift, Left: No Drift ED Course And Treatment - Laboratory Results Result Diagrams: 09/17/18 15:15 O2 Sat by Pulse Oximetry: 92 Medical Decision Making Medical Decision Makin yr old male w/ hx of seizures, intermittent non-compliance w/ dilantin, malingering p/w seizure like activity at welfare office today. No signs of seizure on exam. Pt notes aura preceded seizure. No tongue biting or enuresis. No signs of infections or infx signs on exam. Pt is non-compliant w/ dilantin. Will order dilantin and seek imaging and labs pending imaging, labs 1457 CT HEAD unremarkable pt requesting food before labs being done pending labs 1518 tolerated PO dilantin well pt seeking to sign out ama No SI / HI / depression / anxiety. No seizure like activity noted in ED. Repeat neuro exam unremarkable I endorsed to patient possible or disability if he does not wait for labs. He endorses he understands the risks and still seeks to sign out AMA. Given normal affect and understanding of or disability if labs are not resulted pt signed out AMA. Given script for dilatnin outpt and instructions to return at any time. Disposition - Disposition Referrals: Ellis Stephneson MD [Staff Provider] - [facility] [Outside] [facility] [Outside] [facility] [Outside] Disposition: AGAINST MEDICAL ADVICE Disposition Time: 15:15 Condition: STABLE Additional Instructions: JESUS GONZALEZ, thank you for letting us take care of you today. Your provider was Johnny Armstrong and you were treated for POSSIBLE SEIZURE. The emergency medical care you received today was directed at your acute symptoms. If you were prescribed any medication, please fill it and take as directed. It may take several days for your symptoms to resolve. Return to the Emergency Department if your symptoms worsen, do not improve, or if you have any other problems. Please contact your doctor or call one of the physicians/clinics you have been referred to that are listed on the Patient Visit Information form that is included in your discharge packet. Bring any paperwork you were given at discharge with you along with any medications you are taking to your follow up visit. Our treatment cannot replace ongoing medical care by a primary care provider outside of the emergency department. Thank you for allowing the [facility] team to be part of your care today. If you had an X-Ray or CT scan: A Radiologist will review the ED reading if any change in treatment is needed we will contact you. If you had a blood, urine, or wound culture: It will take several days for the results, if any change in treatment is needed we will contact you. If you had an STI test: It will take 48 hours for the results. Please call after 1 week if you have not heard back. Prescriptions: Phenytoin, Extended [Dilantin Kapseals] 100 mg PO QID 15 Days #60 cer Instructions: Seizures, Adult (DC) Forms: [facility] (Bengali) - Clinical Impression Clinical Impression: Seizure, Noncompliance with medication regimen
[2018-09-17] MEDS ORDERED: Phenytoin 100 mg/4 ml Oral Susp UD PO STA (13:40)
--- NOTE | 2018-09-17 14:51 | CT ---
Date of service: 09/17/2018 PROCEDURE: CT HEAD WITHOUT CONTRAST. HISTORY: seizure, fall COMPARISON: 03/30/2017. TECHNIQUE: Axial computed tomography images were obtained through the head/brain without intravenous contrast. Radiation dose: Total exam DLP = 2078.72 mGy-cm. This CT exam was performed using one or more of the following dose reduction techniques: Automated exposure control, adjustment of the mA and/or kV according to patient size, and/or use of iterative reconstruction technique. FINDINGS: HEMORRHAGE: No intracranial hemorrhage. BRAIN: There are mild chronic microangiopathic changes. There is no mass, mass effect or abnormal extra-axial fluid collection. There is no territorial infarction. The midline sagittal structures are normal. VENTRICLES: There is mild age-related global parenchymal volume loss and proportionate enlargement of the ventricles and cortical sulci. CALVARIUM: There is no calvarial fracture or extracranial soft tissue swelling. There is a chronic deformity in the right lamina papyracea. PARANASAL SINUSES: Predominantly clear. MASTOID AIR CELLS: Predominantly clear. OTHER FINDINGS: None. IMPRESSION: No acute intracranial abnormality. Mild chronic microangiopathic changes and mild age-related global parenchymal volume loss.
[2018-09-17 15:13] VITALS: BP 149/83; PULSE 92; RESP 20
[2018-09-17 15:14] VITALS: O2SAT 92
[2018-09-17 15:23] LABS: BASO # 0.1 K/uL (0.0-0.2); BASO % 0.8 % (0.0-2.0); EOS # 1.7 K/uL (0.0-0.7); EOS % 15.6 % (0.0-4.0); HEMOGLOBIN 13.8 g/dL (12.0-18.0); LYMPH # 2.7 K/uL (1.0-4.3); MEAN CELL VOLUME 90.9 fL (80.0-94.0); MEAN CORPUSCULAR HEMOGLOBIN 30.7 pg (27.0-31.0); MEAN CORPUSCULAR HGB CONC 33.8 g/dL (33.0-37.0); MEAN PLATELET VOLUME 9.5 fL (7.2-11.7); MONO # 0.8 K/uL (0.0-0.8); MONO % 7.2 % (0.0-10.0); NEUT # 5.5 K/uL (1.8-7.0); NEUT % 51.4 % (50.0-75.0); NRBC % 0.2 % (0.0-2.0); RBC 4.5 Mil/uL (4.40-5.90); RED CELL DISTRIBUTION WIDTH 14.6 % (11.5-14.5); WHITE BLOOD COUNT 10.7 K/uL (4.8-10.8)
[2018-09-17 15:42] LABS: ALB/GLOB RATIO 1.5 (1.0-2.1); ALBUMIN 4.3 g/dL (3.5-5.0); ALT/SGPT 27 U/L (21-72); AST/SGOT 23 U/L (17-59); BLOOD UREA NITROGEN 11 mg/dL (9-20); CALCIUM 9.3 mg/dl (8.6-10.4); GFR NON-AFRICAN AMERICAN > 60
== END 2018-09-17 15:20 | disposition left against medical advice (07) ==
LOC: C.ER 12:41
DX: R56.9 Unspecified convulsions (principal); Z91.14 Patient's other noncompliance with medication regimen; E78.00 Pure hypercholesterolemia, unspecified; I10 Essential (primary) hypertension; F20.9 Schizophrenia, unspecified; Z72.0 Tobacco use